=== PATIENT | male | born 1990 | race American Indian/Alaskan Native ===

== ENCOUNTER 2018-10-31 23:37 | Inpatient (IN) | payer OTHER ==
[2018-11-01] MEDS ORDERED: NACL 0.9% 1000 ML 1,000 ML IV ONE (02:03)
[2018-11-01] MEDS ORDERED: ZOFRAN IV ONE (02:03)
[2018-11-01] MEDS ORDERED: MORPHINE IV ONE ×2 (02:32→04:30)
[2018-11-01] MEDS ORDERED: MORPHINE ONE ×2 (02:35→08:04)
[2018-11-01 02:47] LABS: Alanine Aminotransferase 7 units/L (7-56); Albumin 3.5 g/dL (3.9-5); BUN/Creatinine Ratio 12; Blood Urea Nitrogen 12 mg/dL (9-20); Hemolysis Index 4
--- NOTE | 2018-11-01 03:10 | Emergency Department Report ---
ED Abdominal Pain HPI - General Chief Complaint: Rectal Pain Stated Complaint: BUTTOCKS PRESSURE/PAIN Time Seen by Provider: 11/01/18 02:02 Source: patient Mode of arrival: Ambulatory Limitations: No Limitations - History of Present Illness Initial Comments: There is a 28 -year-old -[place] male with no medical history, practices anal sex , patient presents for abdominal pain 7/10 aching sharp with rectal pressure his last bowel movement was 6 days ago, last by mouth intake today patient denies fever chills no nausea /vomiting. MD Complaint: abdominal pain Onset/Timin -: days(s) Radiation: none Migration to: no migration, periumbilical, epigastric, suprapubic Severity: moderate Severity scale (0 -10): 8 Quality: cramping, aching Consistency: constant Improves With: nothing Worsens With: eating, vomiting, movement Context: foreign travel Associated Symptoms: denies: nausea, vomiting, diarrhea, fever, constipation - Related Data Allergies Allergy/AdvReac Type Severity Reaction Status Date / Time No Known Allergies Allergy Unverified 10/31/18 23:44 ED Review of Systems ROS: Stated complaint: BUTTOCKS PRESSURE/PAIN Other details as noted in HPI ED Past Medical Hx - Past Medical History Previous Medical History?: No - Surgical History Past Surgical History?: No - Social History Smoking Status: Never Smoker Substance Use Type: None ED Physical Exam - General Limitations: No Limitations General appearance: alert, in no apparent distress - Head Head exam: Present: atraumatic, normocephalic - Eye Eye exam: Present: normal appearance - ENT ENT exam: Present: mucous membranes moist - Neck Neck exam: Present: normal inspection - Respiratory Respiratory exam: Present: normal lung sounds bilaterally, chest wall tenderness. Absent: respiratory distress, wheezes, stridor - Cardiovascular Cardiovascular Exam: Present: regular rate, normal rhythm, normal heart sounds. Absent: systolic murmur, diastolic murmur, rubs, gallop - GI/Abdominal GI/Abdominal exam: Present: soft, tenderness (bilat lower quad), normal bowel sounds. Absent: guarding, rebound, rigid, bruit, hernia - Rectal Rectal exam: Present: normal rectal tone, tenderness. Absent: black stool, bloody stool, fecal impaction - exam: Present: normal inspection - Extremities Exam Extremities exam: Present: normal inspection, full ROM - Back Exam Back exam: Present: normal inspection, full ROM. Absent: tenderness, CVA tenderness (R), CVA tenderness (L), muscle spasm, rash noted - Neurological Exam Neurological exam: Present: alert, oriented X3, CN II-XII intact, normal gait, reflexes normal - Psychiatric Psychiatric exam: Present: normal affect, normal mood - Skin Skin exam: Present: warm, dry, intact, normal color. Absent: rash ED Course Vital Signs 10/31/18 11/01/18 11/01/18 23:45 02:42 03:12 Temperature 99.5 F Pulse Rate 101 H Respiratory 18 20 18 Rate Blood Pressure 124/67 O2 Sat by Pulse 98 Oximetry 11/01/18 11/01/18 04:51 04:54 Temperature Pulse Rate Respiratory 18 18 Rate Blood Pressure O2 Sat by Pulse 99 Oximetry ED Medical Decision Making - Lab Data Result diagrams: 11/01/18 02:14 11/01/18 02:14 Labs 11/01/18 11/01/18 11/01/18 02:14 02:14 02:14 WBC 8.3 RBC 4.49 Hgb 13.3 Hct 38.1 MCV 85 MCH 30 MCHC 35 H RDW 12.8 L Plt Count 279 Lymph % (Auto) 18.0 [place] % (Auto) 7.1 Eos % (Auto) 1.8 Baso % (Auto) 0.6 Lymph # 1.5 [place] # 0.6 Eos # 0.1 Baso # 0.1 Seg Neutrophils % 72.5 H Seg Neutrophils # 6.0 Sodium 137 Potassium 4.0 Chloride 100.3 Carbon Dioxide 24 Anion Gap 17 BUN 12 Creatinine 1.0 Estimated GFR > 60 BUN/Creatinine Ratio 12 Glucose 105 H Lactic Acid 0.90 Calcium 9.0 Total Bilirubin 0.20 AST 9 ALT 7 Alkaline Phosphatase 66 Total Protein 6.9 Albumin 3.5 L Albumin/Globulin Ratio 1.0 Lipase 19 - Radiology Data Radiology results: report reviewed, image reviewed Ordering Physician: VIRGINIA CHIRINOS NP Date of Service: 11/01/18 Procedure(s): CT abdomen pelvis w con Accession Number(s): [id number] cc: VIRGINIA CHIRINOS NP PROCEDURE: CT ABDOMEN PELVIS W CON TECHNIQUE: Computerized axial tomography of the abdomen and pelvis was performed in arterial and delayed phases "after the IV injection of iodinated nonionic contrast. HISTORY: abd pain COMPARISONS: None . FINDINGS: Partially visualized intrathoracic contents are unremarkable. The liver, gallbladder, pancreas, spleen, and adrenal glands are unremarkable. Kidneys show no worrisome lesions, hydronephrosis, or calculi. Urinary bladder is unremarkable. Small and large bowel are normal in caliber. Appendix is normal. No pneumoperitoneum or ascites. A focal peripherally enhancing fluid collection is present at the left lateral aspect of the rectum on axial series 2, image 170 measuring approximately 3.9 x 2.4 x 2.7 cm. Scattered prominent lymph nodes present in the perirectal fat. Aorta is normal in course and caliber. Superficial soft tissues are unremarkable. No acute or aggressive appearing skeletal findings. IMPRESSION: Perirectal abscess measures approximately 3.9 x 2.4 x 2.7 cm. Notification initiated via Tom technical sales support manager immediately following the exam on 11/01/2018. This document is electronically signed by George Cagle MD., Nov 01 2018 04:17:42 AM ET Transcribed By: MB Dictated By: GEORGE CAGLE MD Electronically Authenticated By: GEORGE CAGLE MD Signed Date/Time: 11/01/18 0419 DD/ 2 TD/TT: 11/01/18202 - Medical Decision Making No CT consult confirms perirectal abscess 4x3 cm, consult to general surgery doctor, recommendation admitted to medicine with general surgery see in am, IV antibiotics Levaquin and Flagyl pain control IV fluids , Consider consulting ID, pt states HIV neg, , Consulted hospitalist will admit to medicine, General Trish valeriy consult requested, discussed treatment plan with patient, patient verbalized agreement and understanding treatment plan. Critical care attestation.: If time is entered above; I have spent that time in minutes in the direct care of this critically ill patient, excluding procedure time. ED Disposition Clinical Impression: Perirectal abscess Disposition: OP ADMIT IP TO THIS HOSP Is pt being admited?: Yes Does the pt Need Aspirin: No Condition: Stable Time of Disposition: 05:11
[2018-11-01 03:44] LABS: Basophils # (Auto) 0.1 K/mm3 (0.0-0.1); Basophils % (Auto) 0.6 % (0.0-1.8); Eosinophils # (Auto) 0.1 K/mm3 (0.0-0.4); Eosinophils % (Auto) 1.8 % (0.0-4.3); Hematocrit 38.1 % (35.5-45.6); Hemoglobin 13.3 gm/dl (11.8-15.2); Lymphocytes # (Auto) 1.5 K/mm3 (1.2-5.4); Mean Corpuscular HGB Conc 35 % (32-34); Mean Corpuscular Volume 85 fl (84-94); Monocytes # (Auto) 0.6 K/mm3 (0.0-0.8); Monocytes % (Auto) 7.1 % (0.0-7.3); Platelet Count 279 K/mm3 (140-440); Red Blood Count 4.49 M/mm3 (3.65-5.03); Red Cell Distribution Width 12.8 % (13.2-15.2)
--- NOTE | 2018-11-01 04:19 | Cat Scan Report ---
PROCEDURE: CT ABDOMEN PELVIS W CON TECHNIQUE: Computerized axial tomography of the abdomen and pelvis was performed in arterial and del ayed phases "after the IV injection of iodinated nonionic contrast. HISTORY: abd pain COMPARISONS: None . FINDINGS: Partially visualized intrathoracic contents are unremarkable. The liver, gallbladder, pancreas, spleen, and adrenal glands are unremarkable. Kidneys show no worrisome lesions, hydronephrosis, or calculi. Urinary bladder is unremarkable. Small and large bowel are normal in caliber. Appendix is normal. No pneumoperitoneum or ascites. A fo teri peripherally enhancing fluid collection is present at the left lateral aspect of the rectum on ax ial series 2, image 170 measuring approximately 3.9 x 2.4 x 2.7 cm. Scattered prominent lymph nodes p resent in the perirectal fat. Aorta is normal in course and caliber. Superficial soft tissues are unremarkable. No acute or aggressive appearing skeletal findings. IMPRESSION: Perirectal abscess measures approximately 3.9 x 2.4 x 2.7 cm. Notification initiated via Tom manager decision support immediately following the exam on 11/01/2018. This document is electronically signed by George Mack MD., Nov 01 2018 04:17:42 AM ET
[2018-11-01] MEDS ORDERED: CLEOCIN 900 MG/50 mL 900 MG/50 ML BAG IV ONE (04:30)
[2018-11-01] MEDS ORDERED: LEVAQUIN 750MG/150ML 750 MG/150 ML BAG IV ONE (04:35)
[2018-11-01] MEDS ORDERED: FLAGYL 500 MG/100 ML 500 MG/100 ML BAG IV ONE ×2 (04:35→07:08)
[2018-11-01] MEDS ORDERED: ZOFRAN IV PRN (05:13)
[2018-11-01] MEDS ORDERED: MORPHINE IV PRN (05:13)
[2018-11-01] MEDS ORDERED: SODIUM CHLORIDE FLUSH SYRINGE 10 ML IV PRN (05:13)
[2018-11-01] MEDS: NACL 0.9% 1000 ML 1,000 ML IV SCH ×2 (05:23→22:53)
--- NOTE | 2018-11-01 05:23 | History and Physical Report ---
History of Present Illness Date of examination: 11/01/18 History of present illness: 28-year-old male with no medical problem comes emergency room complaining of rectal pain 4 days ago. Pain is sharp, intermittent every 5 minutes, intensity 7/10, no radiation, relieved with pain medication in the ER. Practices anal s ex, admits to fever chills Review of systems Constitutional: no weight loss, chills, fever Ears, eyes, nose, mouth and throat: no nasal congestion, no nasal discharge, no sinus pressure, no vision change, no red eye. Neck: No neck pain or rigidity. Cardiovascular: no palpitations, chest pain Respiratory: no cough, shortness of breath Gastrointestinal: no hematochezia, abdominal pain Genitourinary : no frequency , no hematuria Musculoskeletal: no joint swelling or muscle ache Integumentary: no rash, no pruritis Neurological: no parathesias, no focal weakness Endocrine: no cold or heat intolerance, no polyuria or polydipsia Hematologic/Lymphatic: no easy bruising, no easy bleeding, no gland swelling Allergic/Immunologic: no urticaria, no angioedema. PAST MEDICAL HISTORY:None PAST SURGICAL HISTORY: None SOCIAL HISTORY: Denies alcohol, drugs, tobacco FAMILY HISTORY: Hypertension Medications and Allergies Allergies Allergy/AdvReac Type Severity Reaction Status Date / Time No Known Allergies Allergy Unverified 10/31/18 23:44 Active Meds: Active Medications Acetaminophen (Tylenol) 650 mg PO Q4H PRN PRN Reason: Pain MILD(1-3)/Fever >100.5/LOPEZ Enoxaparin Sodium (Lovenox) 30 mg SUB-Q QDAY RL Levofloxacin/Dextrose (Levaquin 750mg/150ml) 750 mg in 150 mls @ 100 mls/hr IV ONCE ONE Stop: 11/01/18 06:04 Sodium Chloride (Nacl 0.9% 1000 Ml) 1,000 mls @ 150 mls/hr IV DIRECT RL Sodium Chloride (Nacl 0.9% 1000 Ml) 1,000 mls @ 125 mls/hr IV DIRECT RL Metronidazole (Flagyl 500 Mg/100 Ml) 500 mg in 100 mls @ 100 mls/hr IV Q8HR RL; Protocol Levofloxacin/Dextrose (Levaquin 750mg/150ml) 750 mg in 150 mls @ 100 mls/hr IV Q24HR RL; Protocol Morphine Sulfate (Morphine) 2 mg IV Q4H PRN PRN Reason: Pain, Moderate (4-6) Ondansetron HCl (Zofran) 4 mg IV Q8H PRN PRN Reason: Nausea And Vomiting Sodium Chloride (Sodium Chloride Flush Syringe 10 Ml) 10 ml IV BID RL Sodium Chloride (Sodium Chloride Flush Syringe 10 Ml) 10 ml IV PRN PRN PRN Reason: LINE FLUSH Exam - Physical Exam Narrative exam: General Apperance: The patient lying in bed, breathing comfortable HEENT: Normocephalic, atraumatic. Pupils equally round and reactive to light, EOMI, no sclericterus or JVD or thyromegaly or nodule. , no carotid bruit, mucous membranes moist, no exudate or erythema Heart: S1-S2, regular is rhythm Lungs: Clear to auscultation bilaterally, breathing comfortable Abdomen: Positive bowel sounds, soft, nontender, nondistended, no organomegaly Extremities: No edema cyanosis clubbing Skin: no rash, nodule, warm and dry Rectal: no erythema, induration, +tender Neuro: cranial nerves 2-12 intact, speech is fluent, motor/sensory intact - Constitutional Vitals: Temp Pulse Resp BP Pulse Ox 99.5 F 101 H 18 124/67 99 10/31/18 23:45 10/31/18 23:45 11/01/18 04:54 10/31/18 23:45 11/01/18 04:54 Results - Labs CBC & Chem 7: 11/01/18 02:14 11/01/18 02:14 Labs: Abnormal lab results 11/01/18 11/01/18 Range/Units 02:14 02:14 MCHC 35 H (32-34) % RDW 12.8 L (13.2-15.2) % Seg Neutrophils % 72.5 H (40.0-70.0) % Glucose 105 H (75-100) mg/dL Albumin 3.5 L (3.9-5) g/dL - Imaging and Cardiology CT scan - abdomen: report reviewed CT scan - pelvis: report reviewed Assessment and Plan Assessment Rectal abscess Plan Admit to medicine Start IV fluid, IV Flagyl and Levaquin per surgery Surgery was consulted to see the patient IV morphine, DVT prophylaxis
[2018-11-01] MEDS ORDERED: NACL 0.9% 1000 ML 1,000 ML IV SCH (06:00)
[2018-11-01] MEDS: DILAUDID IV PRN ×4 (11:01→23:22)
[2018-11-01] MEDS: LOVENOX SUB-Q SCH (11:02)
[2018-11-01] MEDS: SODIUM CHLORIDE FLUSH SYRINGE 10 ML IV SCH ×2 (11:02→22:34)
--- NOTE | 2018-11-01 11:17 | Consultation ---
History of Present Illness Consult date: 11/01/18 Reason for consult: abdominal pain Chief complaint: rectal pain - History of present illness History of present illness: 28 yo M with no PMHx presents with c/o 1 week of rectal pain. The pain began suddenly, is sharp, and has gradually gotten worse. He is unable to have a BM for 1 week and states he feels like gas is trapped. He denies n/v and last meal was yesterday. He admits to f/c. He has never had pain like this before. He has a hx of anal intercourse. CT scan showed perirectal abscess. Per ER practitioner, nothing could be felt on rectal exam. Past History Past Medical History: No medical history Past Surgical History: Other (R knee surgery) Social history: no significant social history Family history: no significant family history Medications and Allergies Allergies Allergy/AdvReac Type Severity Reaction Status Date / Time No Known Allergies Allergy Verified 11/01/18 07:25 Home Medications Medication Instructions Recorded Confirmed Last Taken Type No Known Home Medications [No 11/01/18 11/01/18 Unknown History Reported Home Medications] Active Meds: Active Medications Acetaminophen (Tylenol) 650 mg PO Q4H PRN PRN Reason: Pain MILD(1-3)/Fever >100.5/LOPEZ Enoxaparin Sodium (Lovenox) 40 mg SUB-Q QDAY RL Last Admin: 11/01/18 11:02 Dose: Not Given Documented by: Hydromorphone HCl (Dilaudid) 1 mg IV Q3H PRN PRN Reason: Pain , Severe (7-10) Last Admin: 11/01/18 11:01 Dose: 1 mg Documented by: Sodium Chloride (Nacl 0.9% 1000 Ml) 1,000 mls @ 150 mls/hr IV DIRECT RL Last Admin: 11/01/18 05:23 Dose: 150 mls/hr Documented by: Sodium Chloride (Nacl 0.9% 1000 Ml) 1,000 mls @ 125 mls/hr IV DIRECT RL Metronidazole (Flagyl 500 Mg/100 Ml) 500 mg in 100 mls @ 100 mls/hr IV Q8HR RL; Protocol Levofloxacin/Dextrose (Levaquin 750mg/150ml) 750 mg in 150 mls @ 100 mls/hr IV Q24HR RL; Protocol Ondansetron HCl (Zofran) 4 mg IV Q8H PRN PRN Reason: Nausea And Vomiting Sodium Chloride (Sodium Chloride Flush Syringe 10 Ml) 10 ml IV BID RL Last Admin: 11/01/18 11:02 Dose: 10 ml Documented by: Sodium Chloride (Sodium Chloride Flush Syringe 10 Ml) 10 ml IV PRN PRN PRN Reason: LINE FLUSH Review of Systems All systems: negative (10 PT ROS performed and negative except for that listed in HPI) Exam Vital Signs Temp Pulse Resp BP Pulse Ox 99.5 F 101 H 18 124/67 98 10/31/18 23:45 10/31/18 23:45 10/31/18 23:45 10/31/18 23:45 10/31/18 23:45 Narrative exam: Gen; AAOx3. NAD CV: S1, S2+ resp: even and unlabored Abd: soft, NT, ND Ext: no c/c/e Results - Labs 11/01/18 02:14 11/01/18 02:14 Abnormal lab results 11/01/18 11/01/18 Range/Units 02:14 02:14 MCHC 35 H (32-34) % RDW 12.8 L (13.2-15.2) % Seg Neutrophils % 72.5 H (40.0-70.0) % Glucose 105 H (75-100) mg/dL Albumin 3.5 L (3.9-5) g/dL Diabetes panel 11/01/18 Range/Units 02:14 Sodium 137 (137-145) mmol/L Potassium 4.0 (3.6-5.0) mmol/L Chloride 100.3 (98-107) mmol/L Carbon Dioxide 24 (22-30) mmol/L BUN 12 (9-20) mg/dL Creatinine 1.0 (0.8-1.5) mg/dL Glucose 105 H (75-100) mg/dL Calcium 9.0 (8.4-10.2) mg/dL AST 9 (5-40) units/L ALT 7 (7-56) units/L Alkaline Phosphatase 66 (35-129) units/L Total Protein 6.9 (6.3-8.2) g/dL Albumin 3.5 L (3.9-5) g/dL Calcium panel 11/01/18 Range/Units 02:14 Calcium 9.0 (8.4-10.2) mg/dL Albumin 3.5 L (3.9-5) g/dL Pituitary panel 11/01/18 Range/Units 02:14 Sodium 137 (137-145) mmol/L Potassium 4.0 (3.6-5.0) mmol/L Chloride 100.3 (98-107) mmol/L Carbon Dioxide 24 (22-30) mmol/L BUN 12 (9-20) mg/dL Creatinine 1.0 (0.8-1.5) mg/dL Glucose 105 H (75-100) mg/dL Calcium 9.0 (8.4-10.2) mg/dL Adrenal panel 11/01/18 Range/Units 02:14 Sodium 137 (137-145) mmol/L Potassium 4.0 (3.6-5.0) mmol/L Chloride 100.3 (98-107) mmol/L Carbon Dioxide 24 (22-30) mmol/L BUN 12 (9-20) mg/dL Creatinine 1.0 (0.8-1.5) mg/dL Glucose 105 H (75-100) mg/dL Calcium 9.0 (8.4-10.2) mg/dL Total Bilirubin 0.20 (0.1-1.2) mg/dL AST 9 (5-40) units/L ALT 7 (7-56) units/L Alkaline Phosphatase 66 (35-129) units/L Total Protein 6.9 (6.3-8.2) g/dL Albumin 3.5 L (3.9-5) g/dL - Imaging CT scan - abdomen: report reviewed, image reviewed CT scan - pelvis: report reviewed, image reviewed Assessment and Plan 28 yo M with perirectal abscess CT images reviewed with Dr. Quinn Plan: 1. NPO 2. IVF 3. IV abs 4. prn pain control 5. bowel regimen 6. OR today for rectal exam under anesthesia and drainage of perirectal abscess Thank you, please call with questions.
[2018-11-01] MEDS: TYLENOL PO PRN (12:15)
[2018-11-01] MEDS: FLAGYL 500 MG/100 ML 500 MG/100 ML BAG IV SCH ×3 (14:34→22:33)
--- NOTE | 2018-11-01 18:50 | Event Note ---
Date: 11/01/18 Surgery postponed until tomorrow due to no OR staff availability daniel. Several emergency cases in the OR and GI. Notified patient we will start diet and perform surgery tomorrow. He was understanding. KEN sanchez. Discussed with patient's RN.
[2018-11-02] MEDS: TYLENOL PO PRN ×2 (00:03→09:31)
[2018-11-02] MEDS: DILAUDID IV PRN ×2 (02:52→06:07)
[2018-11-02 05:21] LABS: Basophils % (Auto) 0.1 % (0.0-1.8); Eosinophils # (Auto) 0.1 K/mm3 (0.0-0.4); Eosinophils % (Auto) 0.9 % (0.0-4.3); Hematocrit 35.1 % (35.5-45.6); Lymphocytes # (Auto) 1.7 K/mm3 (1.2-5.4); Lymphocytes % (Auto) 22.4 % (13.4-35.0); Mean Corpuscular HGB Conc 34 % (32-34); Mean Corpuscular Volume 85 fl (84-94); Monocytes # (Auto) 0.7 K/mm3 (0.0-0.8); Monocytes % (Auto) 8.9 % (0.0-7.3); Platelet Count 258 K/mm3 (140-440); Red Blood Count 4.13 M/mm3 (3.65-5.03)
[2018-11-02 05:40] LABS: BUN/Creatinine Ratio 8; Blood Urea Nitrogen 7 mg/dL (9-20); Calcium 7.8 mg/dL (8.4-10.2); Hemolysis Index 4
[2018-11-02] MEDS: FLAGYL 500 MG/100 ML 500 MG/100 ML BAG IV SCH ×3 (06:06→22:48)
--- NOTE | 2018-11-02 07:26 | Event Note ---
Date: 11/01/18 For Perirectal abscess I/D today
[2018-11-02] MEDS ORDERED: XYLOCAINE 1% 20 mL ONE (08:46)
[2018-11-02] MEDS ORDERED: VERSED IV NR (09:21)
[2018-11-02] MEDS ORDERED: SUBLIMAZE IV NR (09:27)
[2018-11-02] MEDS: LACTATED RINGERS 1,000 ML IV SCH (09:45)
[2018-11-02] MEDS ORDERED: XYLOCAINE MPF 2% ONE (09:55)
[2018-11-02] MEDS ORDERED: MARCAINE 0.5% INFILTRATI ONE ×2 (09:55→10:31)
[2018-11-02] MEDS ORDERED: DIPRIVAN 10 MG/ML IV ONE (09:55)
[2018-11-02] MEDS ORDERED: SUBLIMAZE ONE (09:55)
[2018-11-02] MEDS ORDERED: DECADRON ONE (09:55)
[2018-11-02] MEDS ORDERED: ZEMURON IV ONE (09:55)
[2018-11-02] MEDS ORDERED: ZOFRAN ONE (09:55)
[2018-11-02] MEDS: SODIUM CHLORIDE FLUSH SYRINGE 10 ML IV SCH (10:00)
[2018-11-02] MEDS: LEVAQUIN 750MG/150ML 750 MG/150 ML BAG IV SCH (10:10)
[2018-11-02] MEDS ORDERED: NACL 0.9% IR ONE (10:31)
[2018-11-02] MEDS ORDERED: XYLOCAINE 2% UROJET UR ONE (11:20)
[2018-11-02] MEDS ORDERED: XYLOCAINE 2% UROJET ONE (11:21)
[2018-11-02] MEDS ORDERED: NORCO 5/325 PO PRN (11:27)
--- NOTE | 2018-11-02 11:29 | Post Operative Note ---
Date of procedure: 11/02/18 Pre-op diagnosis: rectal abscess Post-op diagnosis: same Findings: large amount of purulent fluid in abscess cavity Procedure: incision and drainage of rectal abscess Anesthesia: DAVIDA, local Surgeon: OLESYA RUIZ Estimated blood loss: minimal Pathology: list (wound cultures) Specimen disposition: to lab Condition: stable Disposition: PACU
[2018-11-02] MEDS: LOVENOX SUB-Q SCH (13:54)
--- NOTE | 2018-11-02 14:23 | Operative Report ---
PREOPERATIVE DIAGNOSIS: Rectal abscess. POSTOPERATIVE DIAGNOSIS: Rectal abscess. FINDINGS: Large amount of purulent fluid and abscess cavity. PROCEDURE: Incision and drainage of rectal abscess. ANESTHESIA: General endotracheal anesthesia, local. SURGEON: Analia Anderson DO ESTIMATED BLOOD LOSS: Minimal. PATHOLOGY: Wound cultures. SPECIMEN DISPOSITION: To lab. CONDITION AND DISPOSITION: The patient is stable to PACU. HISTORY OF PRESENT ILLNESS AND INDICATION: The patient is a 28-year-old male who presented to the Emergency Room with complaints of rectal pain and constipation. He was found to have a rectal abscess on CAT scan. He was therefore admitted for IV antibiotics and surgery was recommended. I discussed all risks, benefits and alternatives of the surgery with the patient and questions answered. Consent was obtained. PROCEDURE IN DETAIL: The patient was identified in the preoperative area. The patient was taken to the operating room and anesthesia was induced on the stretcher. After the patient was intubated and the tube secured, the patient was transferred to the operating room table in a prone position. All bony prominences were appropriately padded. He was then placed in jackknife position and his buttocks taped apart. The rectal area was prepped with Betadine in the usual sterile fashion. The area was then draped in the usual sterile fashion. A timeout was performed. A digital rectal exam was performed and on the left hand side, there was a fluctuant and indurated mass in the rectum approximately 6-7 cm from the anal verge. A retractor was placed into the rectum in order to better visualize this area. An 18-gauge syringe was inserted into the fluctuant area. There was immediate return of purulent fluid and cultures were obtained. A alessandro incision was made at this location and there was copious drainage of purulent fluid mixed with some blood. Using a hemostat, the abscess cavity was gently probed and all of the purulent material was expressed. The abscess cavity and rectum were irrigated until the irrigant returned clear. A 10-Japanese Malecot catheter was inserted into the abscess cavity and brought out through the rectum and sutured to the gluteal area using a 3-0 nylon drain stitch. The rectum was once again checked for hemostasis, which was carefully ensured and a Surgifoam gauze coated with lidocaine jelly was placed into the rectum. A 4 x 4 gauze was placed over the drain and the rectal area and covered with tape. At the end of the case, all sponge and instrument count, and sharp counts were correct x 2. The patient was transferred back to the stretcher in supine position and extubated. He was taken to PACU in stable condition. JOB# [id number] DILCIA/SOLEDAD ELDRIDGE
[2018-11-02] MEDS: MIRALAX 3350 PO SCH (14:44)
[2018-11-02] MEDS: COLACE PO SCH ×2 (14:44→22:48)
--- NOTE | 2018-11-02 14:58 | Progress Note ---
Assessment and Plan Assessment and plan: Rectal abscess s/p I and D done by Surgeon Cont iv Antibiotics Full code status History Interval history: Pain rectal area Fever Hospitalist Physical - Physical exam Narrative exam: Gen: Not in acute distress, lying in bed, HEENT: Normocephalic, atraumatic Neck: supple, no JVD Heart: S1 and S2 reg, no murmurs, rubs or gallop Lungs: Clear, no crackles, no wheeze Abd: soft, non tender, non distended, normal BS Ext:No edema, no clubbing, no cyanosis Neuro: Awake,alert, oriented x 3, moves all ext, non focal Psych:Normal mood - Constitutional Vitals: Temp Pulse Resp BP Pulse Ox 98.1 F 88 18 117/73 99 11/02/18 12:20 11/02/18 12:20 11/02/18 12:20 11/02/18 12:20 11/02/18 12:20 Results - Labs CBC & Chem 7: 11/02/18 05:06 11/02/18 05:06 Labs: Laboratory Last Values WBC 7.5 K/mm3 (4.5-11.0) 11/02/18 05:06 RBC 4.13 M/mm3 (3.65-5.03) 11/02/18 05:06 Hgb 12.0 gm/dl (11.8-15.2) 11/02/18 05:06 Hct 35.1 % (35.5-45.6) L 11/02/18 05:06 MCV 85 fl (84-94) 11/02/18 05:06 MCH 29 pg (28-32) 11/02/18 05:06 MCHC 34 % (32-34) 11/02/18 05:06 RDW 13.0 % (13.2-15.2) L 11/02/18 05:06 Plt Count 258 K/mm3 (140-440) 11/02/18 05:06 Lymph % (Auto) 22.4 % (13.4-35.0) 11/02/18 05:06 [place] % (Auto) 8.9 % (0.0-7.3) H 11/02/18 05:06 Eos % (Auto) 0.9 % (0.0-4.3) 11/02/18 05:06 Baso % (Auto) 0.1 % (0.0-1.8) 11/02/18 05:06 Lymph # 1.7 K/mm3 (1.2-5.4) 11/02/18 05:06 [place] # 0.7 K/mm3 (0.0-0.8) 11/02/18 05:06 Eos # 0.1 K/mm3 (0.0-0.4) 11/02/18 05:06 Baso # 0.0 K/mm3 (0.0-0.1) 11/02/18 05:06 Seg Neutrophils % 67.7 % (40.0-70.0) 11/02/18 05:06 Seg Neutrophils # 5.0 K/mm3 (1.8-7.7) 11/02/18 05:06 Sodium 137 mmol/L (137-145) 11/02/18 05:06 Potassium 3.6 mmol/L (3.6-5.0) 11/02/18 05:06 Chloride 102.0 mmol/L (98-107) 11/02/18 05:06 Carbon Dioxide 25 mmol/L (22-30) 11/02/18 05:06 14 mmol/L 11/02/18 05:06 BUN 7 mg/dL (9-20) L 11/02/18 05:06 0.9 mg/dL (0.8-1.5) 11/02/18 05:06 Estimated GFR > 60 ml/min 11/02/18 05:06 8 % 11/02/18 05:06 Glucose 89 mg/dL (75-100) 11/02/18 05:06 Lactic Acid 0.90 mmol/L (0.7-2.0) 11/01/18 02:14 Calcium 7.8 mg/dL (8.4-10.2) L 11/02/18 05:06 0.20 mg/dL (0.1-1.2) 11/01/18 02:14 AST 9 units/L (5-40) 11/01/18 02:14 ALT 7 units/L (7-56) 11/01/18 02:14 66 units/L (35-129) 11/01/18 02:14 6.9 g/dL (6.3-8.2) 11/01/18 02:14 3.5 g/dL (3.9-5) L 11/01/18 02:14 1.0 % 11/01/18 02:14 19 units/L (13-60) 11/01/18 02:14 Active Medications - Current Medications Current Medications: Generic Name Dose Route Start Last Admin Trade Name Freq PRN Reason Stop Dose Admin Acetaminophen 650 mg 11/01/18 05:13 11/02/18 09:31 Tylenol PO 650 mg Q4H PRN Administration Pain MILD(1-3)/Fever >100.5/LOPEZ Acetaminophen/Hydrocodone Bitart 1 each 11/02/18 11:27 [place] 5/325 PO Q6H PRN Pain, Moderate (4-6) Docusate Sodium 100 mg 11/02/18 12:00 11/02/18 14:44 Colace PO 100 mg BID RL Administration Enoxaparin Sodium 40 mg 11/01/18 10:00 11/02/18 13:54 Lovenox SUB-Q Not Given QDAY RL Metronidazole 500 mg in 100 mls @ 100 mls/hr 11/01/18 13:00 11/02/18 14:51 Flagyl 500 Mg/100 Ml IV 100 mls/hr Q8HR RL Administration Protocol Levofloxacin/Dextrose 750 mg in 150 mls @ 100 mls/hr 11/02/18 10:00 11/02/18 10:10 Levaquin 750mg/150ml IV 100 mls/hr Q24HR RL Administration Protocol Lactated Ringer's 1,000 mls @ 100 mls/hr 11/02/18 09:21 11/02/18 09:45 Lactated Ringers IV 100 mls/hr DIRECT RL Administration Ondansetron HCl 4 mg 11/01/18 05:13 11/01/18 23:25 Zofran IV 4 mg Q8H PRN Administration Nausea And Vomiting Polyethylene Glycol 17 gm 11/02/18 14:00 11/02/18 14:44 Miralax 3350 PO 17 gm QDAY RL Administration Sodium Chloride 10 ml 11/01/18 10:00 11/02/18 10:00 Sodium Chloride Flush Syringe 10 Ml IV Not Given BID RL Sodium Chloride 10 ml 11/01/18 05:13 Sodium Chloride Flush Syringe 10 Ml IV PRN PRN LINE FLUSH
[2018-11-03] MEDS: SODIUM CHLORIDE FLUSH SYRINGE 10 ML IV SCH ×2 (05:18→10:47)
[2018-11-03] MEDS: FLAGYL 500 MG/100 ML 500 MG/100 ML BAG IV SCH (06:20)
[2018-11-03] MEDS: LACTATED RINGERS 1,000 ML IV SCH (06:22)
[2018-11-03] MEDS: LEVAQUIN 750MG/150ML 750 MG/150 ML BAG IV SCH (10:44)
[2018-11-03] MEDS: LOVENOX SUB-Q SCH (10:45)
[2018-11-03] MEDS: COLACE PO SCH (10:45)
[2018-11-03] MEDS: MIRALAX 3350 PO SCH (10:46)
[2018-11-03 10:58] VITALS: BP 104/70
--- NOTE | 2018-11-03 11:12 | Progress Note ---
Assessment and Plan 28 yo M s/p incision and drainage of rectal abscess, POD 1 Plan; 1. reg diet 2. prn PO pain control - OTC 3. drain dced 4. transition to oral abx - Levquin and Flagyl x total of 10-14 days 5. may dc home from surgery standpoint D/W Dr. Naranjo. Thank you, please call with questions. Subjective Date of service: 11/03/18 Narrative: Pt seen and examined. He feels much better. No f/c. He had a BM yesterday. No bleeding. Rectal packing and drain came out of rectum during BM. NO pain Objective Vital Signs - 12hr 11/02/18 11/03/18 11/03/18 23:34 00:04 04:23 Temperature 98.3 F 97.8 F Pulse Rate 77 87 75 Respiratory 16 17 Rate Blood Pressure 93/50 Blood Pressure 121/66 [Left] O2 Sat by Pulse 98 97 98 Oximetry 11/03/18 11/03/18 08:00 08:17 Temperature 97.7 F Pulse Rate 77 75 Respiratory 18 Rate Blood Pressure Blood Pressure 104/70 [Left] O2 Sat by Pulse 99 Oximetry - General physical appearance Narrative Exam: Gen: AAOx3. NAD CV: s1, S2+ resp: even and unlabored Ext: no c/c/e Rectal: external exam - no gross blood or drainage. Skin suture and drain removed - Labs 11/02/18 05:06 11/02/18 05:06
--- NOTE | 2018-11-03 13:53 | Discharge Summary ---
Providers - Providers Date of Admission: 11/01/18 06:52 Date of discharge: 11/03/18 Attending physician: LIZETH CLAYTON 11/01/18 04:56 Consult to Physician [CONS] Stat Comment: done Consulting Provider: OLESYA RUIZ Physician Instructions: Reason For Exam: perirectal abscess Primary care physician: [employer] Hospitalization Condition: Fair Hospital course: Patient is 28-year-old male with HIV presented to emergency room complaining of rectal pain for 4 days. Pain is sharp, intermittent every 5 minutes, intensity 7/10, no radiation, relieved with pain medication in the ER. He has sex with men, practices anal sex, admitted to fever chills. CT abdomen and pelvis revealed perirectal abscess. He was then IV antibiotics and admitted. Patient evaluated by surgeon and incision and drainage done 11/02/2018. Post-procedure he felt better and discharged home next day to follow as an outpatient. Also of note, on initial evaluation in the emergency department he did not reveal that he is HIV positive however when I ask him directly he stated he was HIV positive and is on HAART. Total time spent on discharge, 32 mins R Disposition: DC-01 TO HOME OR SELFCARE - Discharge Diagnoses (1) HIV positive Status: Acute (2) Perirectal abscess Status: Acute Core Measure Documentation - Palliative Care Palliative Care/ Comfort Measures: Not Applicable - Core Measures Any of the following diagnoses?: none Exam - Constitutional Vitals: Temp Pulse Resp BP Pulse Ox 97.7 F 75 18 104/70 99 11/03/18 08:00 11/03/18 08:17 11/03/18 08:00 11/03/18 08:00 11/03/18 08:17 Plan Activity: advance as tolerated Diet: regular Additional Instructions: 1.Follow up with PCP or [facility] in 1 week. 2.Follow up with Dr. Ruiz, surgeon in 1 week Follow up with: PRIMARY CAREMD [Primary Care Provider] - 7 Days Prescriptions: Docusate Sodium [Colace CAP] 100 mg PO BID #14 capsule metroNIDAZOLE [Flagyl TAB] 500 mg PO Q8H #30 tablet levoFLOXacin [Levaquin TAB] 500 mg PO Q24HR #10 tablet HYDROcodone/APAP 5-325 [[place] 5-325 mg TAB] 1 each PO Q6H PRN #15 tablet PRN Reason: Pain, Moderate (4-6)
[2018-11-03] MEDS ORDERED: LEVAQUIN PO SCH (14:00)
[2018-11-03] MEDS ORDERED: FLAGYL PO SCH (14:00)
== END 2018-11-03 16:30 | disposition home or self-care (01) | DRG 346 ==
LOC: ED 23:37 → 3B-SURG 11-01 06:52
PROVIDERS: ADMIT Internal Medicine; ATTEND Internal Medicine
PROC: 0D9P3ZZ Drainage of Rectum, Percutaneous Approach (ICD-10-PCS; principal; 2018-11-02)
PROC: 0D9P0ZZ Drainage of Rectum, Open Approach (ICD-10-PCS; 2018-11-02)
DX: K61.1 Rectal abscess (principal); Z82.49 Family history of ischemic heart disease and other diseases of the circulatory system
CPT/HCPCS: 36415; 74177; 80048; 80053; 82140; 83690; 85025; 87040; 87075; 87076; 87116; 87186; 96361; 96365; 96375; 96376; G0378; J1100; J1170; J1650; J1956; J2250; J2270; J2405; J2704; J3010; J7030; J7120; Q9967

== ENCOUNTER 2019-11-12 23:02 | Inpatient (IN) | payer OTHER ==
[2019-11-13] MEDS ORDERED: HYDROmorphone 1 MG/1 ML INJ IV ONE (00:35)
[2019-11-13] MEDS ORDERED: SODIUM CHLORIDE 0.9% 1000 ML 1,000 ML IV ONE ×2 (00:36→00:51)
--- NOTE | 2019-11-13 00:37 | Emergency Department Report ---
ED General Adult HPI - General Chief complaint: Rectal Pain Stated complaint: RECTAL PAIN PUI?: No Time Seen by Provider: 11/13/19 00:26 Source: patient, RN notes reviewed, old records reviewed Mode of arrival: Ambulatory Limitations: No Limitations - History of Present Illness Initial comments: Patient is a 29-year-old gentleman. He is not known to myself. He has a history of HIV and is on antiviral therapy. He also has a history of perirectal abscess, diagnosed at this hospital in 2019. He presents to the ER with 3 to 4 days of sharp burning deep boring pelvic pain, intermittent dysuria, but no headache, neck pain, chest pain, abdominal pain, shortness of breath. No testicular pain. He reports difficulty with defecating. He is not sure if his symptoms are similar or different to prior perirectal abscess. He reports one new sexual partner, and the patient himself does endorse receptive anal intercourse, with condoms. He denies rectal discharge. His symptoms are sharp, throbbing and aching, do not radiate anywhere, and are markedly improved with hydromorphone in the emergency room. Apparently, at other medical institutions, he was presumptively diagnosed with hemorrhoids. -: Gradual, days(s) Quality: aching, sharp Consistency: constant Improves with: medication Worsens with: movement - Related Data Home Medications Medication Instructions Recorded Confirmed Last Taken Truvada 133 mg-200 mg Tablet 133 mg PO DAILY 11/03/18 11/03/18 11/03/18 11:40 Previous Rx's Medication Instructions Recorded Last Taken Type Docusate Sodium [Colace CAP] 100 mg PO BID #14 capsule 11/03/18 Unknown Rx HYDROcodone/APAP 5-325 [[place] 1 each PO Q6H PRN #15 tablet 11/03/18 Unknown Rx 5-325 mg TAB] levoFLOXacin [Levaquin TAB] 500 mg PO Q24HR #10 tablet 11/03/18 Unknown Rx metroNIDAZOLE [Flagyl TAB] 500 mg PO Q8H #30 tablet 11/03/18 Unknown Rx Allergies Allergy/AdvReac Type Severity Reaction Status Date / Time No Known Allergies Allergy Verified 11/01/18 07:25 ED Review of Systems ROS: Stated complaint: RECTAL PAIN Other details as noted in HPI Constitutional: denies: fever Eyes: denies: vision change ENT: denies: epistaxis Respiratory: denies: cough Cardiovascular: denies: chest pain Gastrointestinal: constipation. denies: abdominal pain, nausea, vomiting, diarrhea, hematemesis, melena, hematochezia Genitourinary: dysuria. denies: urgency, testicular pain Musculoskeletal: denies: back pain Skin: denies: lesions Neurological: denies: weakness Psychiatric: as per HPI Hematological/Lymphatic: denies: easy bleeding ED Past Medical Hx - Past Medical History Previous Medical History?: Yes Hx Congestive Heart Failure: No Hx Diabetes: No Hx Asthma: No Hx COPD: No Additional medical history: Rectal Polyp - Surgical History Past Surgical History?: Yes Additional Surgical History: Restal Polyp - Social History Smoking Status: Never Smoker Substance Use Type: None - Medications Home Medications: Home Medications Medication Instructions Recorded Confirmed Last Taken Type Docusate Sodium [Colace CAP] 100 mg PO BID #14 capsule 11/03/18 Unknown Rx HYDROcodone/APAP 5-325 [[place] 1 each PO Q6H PRN #15 tablet 11/03/18 Unknown Rx 5-325 mg TAB] Truvada 133 mg-200 mg Tablet 133 mg PO DAILY 11/03/18 11/03/18 11/03/18 11:40 History levoFLOXacin [Levaquin TAB] 500 mg PO Q24HR #10 tablet 11/03/18 Unknown Rx metroNIDAZOLE [Flagyl TAB] 500 mg PO Q8H #30 tablet 11/03/18 Unknown Rx ED Physical Exam - General Limitations: No Limitations General appearance: alert, anxious, in distress - Head Head exam: Present: atraumatic, normocephalic - Eye Eye exam: Present: normal appearance, EOMI. Absent: nystagmus - ENT ENT exam: Present: normal exam, normal orophraynx, mucous membranes moist, normal external ear exam - Neck Neck exam: Present: normal inspection, full ROM. Absent: tenderness, meningismus - Respiratory Respiratory exam: Present: normal lung sounds bilaterally. Absent: respiratory distress - Cardiovascular Cardiovascular Exam: Present: normal rhythm, tachycardia, normal heart sounds. Absent: systolic murmur, diastolic murmur, rubs, gallop - GI/Abdominal GI/Abdominal exam: Present: soft, normal bowel sounds. Absent: distended, tenderness, guarding, rebound, rigid, pulsatile mass - Rectal Rectal exam: Present: normal inspection, normal rectal tone, prostate tenderness, prostate enlargement, other (Chaperoned by nurse Shira Abraham). Absent: heme (-) stool, black stool, bloody stool - exam: Present: normal inspection, other (There is normal testicular lie. T here is normal cremasteric reflex. There is no testicular tenderness. There is no testicular swelling. Chaperoned by nurse Shira Abraham). Absent: testicular tenderness External exam: Present: normal external exam - Extremities Exam Extremities exam: Present: normal inspection, full ROM, other (2+ pulses noted in the bilateral upper and lower extremities. There is no palpable cord. negative Homans sign. Muscular compartments are soft. The pelvis is stable.). Absent: pedal edema, calf tenderness - Back Exam Back exam: Present: normal inspection, full ROM. Absent: tenderness, CVA ten derness (R), CVA tenderness (L), paraspinal tenderness, vertebral tenderness - Neurological Exam Neurological exam: Present: alert, oriented X3, other (No facial droop. Tongue midline. Extraocular movements intact bilaterally. Facial sensation intact to light touch in V1, V2, V3 distribution bilaterally. 5 and a 5 strength in 4 extremities. Sensation intact to light touch in 4 extremities.). Absent: motor sensory deficit - Psychiatric Psychiatric exam: Present: anxious - Skin Skin exam: Present: warm, dry, intact, normal color. Absent: rash ED Course Vital Signs 11/12/19 11/13/19 11/13/19 23:23 00:41 01:00 Temperature 98.3 F Pulse Rate 127 H 111 H 96 H Respiratory 18 20 21 Rate Blood Pressure 114/70 134/76 O2 Sat by Pulse 100 97 Oximetry 11/13/19 02:00 Temperature Pulse Rate 102 H Respiratory 15 Rate Blood Pressure 131/72 O2 Sat by Pulse 97 Oximetry - Reevaluation(s) Reevaluation #1: 11/13/19 00:59 Differential diagnosis, including but not limited to: Cystitis, prostatitis, perirectal abscess, proctitis Assessment and plan: 29-year-old gentleman with history of perirectal abscess, with prostatic tenderness, new onset pain, history of perirectal abscess. We will treat his symptoms, obtain urinalysis, urine culture, laboratory studies, pelvic CT, and reassess. Highly suspect prostatitis Reevaluation #2: 11/13/19 02:16 CT scan shows perirectal abscess. Patient having difficulty urinating. Carrion catheter ordered. Antibiotics ordered. Contacted general surgeon on-call, Dr. Sargent, I discussed patient's history, physical, laboratory studies, and CT scan findings. His group will see the patient in consultation. He requested nothing by mouth after 6 AM. Hospital physician, Dr. Kelley, to admit the patient. Patient updated on findings. He is amenable to hospitalization. ED Medical Decision Making - Lab Data Result diagrams: 11/13/19 00:44 11/13/19 00:44 Vital Signs 11/12/19 23:23 Temperature 98.3 F Pulse Rate 127 H Respiratory 18 Rate Blood Pressure 114/70 O2 Sat by Pulse 100 Oximetry - Radiology Data Radiology results: pending, report reviewed, image reviewed CT pelvis w con INDICATION / CLINICAL INFORMATION: MAIN: Pelvic pain, prostatitis versus perirectal abscess, 100CC [id number]. TECHNIQUE: Routine CT of the pelvis with IV contrast All CT scans at this location are performed using CT dose reduction for ALARA by means of automated exposure control. COMPARISON: 11/01/2018. FINDINGS: There is a large multiloculated perirectal abscess that measures about 5.2 x 3.4 x 2.6 cm. It is significantly enlarged when compared to the prior exam. The urinary bladder is unremarkable. The perirectal abscess is immediately adjacent to the prostate. No additional inflammatory abnormality is appreciated. IMPRESSION: Large multiloculated perirectal abscess immediately adjacent to the left lobe of the prostate measuring 5.2 x 3.4 x 2.6 cm. Signer Name: Sunny Harper MD Signed: 11/13/2019 1:04 AM Workstation Name: [id number] Critical care attestation.: If time is entered above; I have spent that time in minutes in the direct care of this critically ill patient, excluding procedure time. ED Disposition Clinical Impression: Perirectal abscess, HIV positive Disposition: OP ADMIT IP TO THIS HOSP Is pt being admited?: Yes Does the pt Need Aspirin: No Condition: Good Referrals: PRIMARY CARE, [Primary Care Provider] - 3-5 Days
[2019-11-13] MEDS ORDERED: HYDROmorphone 1 MG/1 ML INJ ONE ×2 (00:39→14:08)
[2019-11-13] MEDS ORDERED: SODIUM CHLORIDE 0.9% 1000 ML 1,000 ML ONE ×2 (00:39→03:25)
[2019-11-13 01:07] LABS: Basophils # (Auto) 0.1 K/mm3 (0.0-0.1); Basophils % (Auto) 0.7 % (0.0-1.8); Eosinophils # (Auto) 0.1 K/mm3 (0.0-0.4); Eosinophils % (Auto) 1.1 % (0.0-4.3); Hematocrit 42.2 % (35.5-45.6); Hemoglobin 14.2 gm/dl (11.8-15.2); Lymphocytes # (Auto) 1.9 K/mm3 (1.2-5.4); Lymphocytes % (Auto) 19.3 % (13.4-35.0); Mean Corpuscular HGB Conc 34 % (32-34); Mean Corpuscular Volume 86 fl (84-94); Monocytes # (Auto) 0.9 K/mm3 (0.0-0.8); Monocytes % (Auto) 8.6 % (0.0-7.3); Platelet Count 262 K/mm3 (140-440); Red Blood Count 4.93 M/mm3 (3.65-5.03); Red Cell Distribution Width 13.6 % (13.2-15.2)
[2019-11-13 01:24] LABS: Alanine Aminotransferase 12 units/L (7-56); Albumin 4.5 g/dL (3.9-5); BUN/Creatinine Ratio 10; Blood Urea Nitrogen 9 mg/dL (9-20); Calcium 9.5 mg/dL (8.4-10.2); Hemolysis Index 12
--- NOTE | 2019-11-13 02:09 | Cat Scan Report ---
CT pelvis w con INDICATION / CLINICAL INFORMATION: MAIN: Pelvic pain, prostatitis versus perirectal abscess, 100CC [id number]. TECHNIQUE: Routine CT of the pelvis with IV contrast All CT scans at this location are performed using CT dose r eduction for ALARA by means of automated exposure control. COMPARISON: 11/01/2018. FINDINGS: There is a large multiloculated perirectal abscess that measures about 5.2 x 3.4 x 2.6 cm. It is sign ificantly enlarged when compared to the prior exam. The urinary bladder is unremarkable. The perirectal abscess is immediately adjacent to the prostate. No additional inflammatory abnormalit y is appreciated. IMPRESSION: Large multiloculated perirectal abscess immediately adjacent to the left lobe of the pros murphy measuring 5.2 x 3.4 x 2.6 cm. Signer Name: Sunny Harper MD Signed: 11/13/2019 2:04 AM Workstation Name: [id number]
[2019-11-13] MEDS ORDERED: metroNIDAZOLE/NS 500 MG/100 ML 500 MG/100 ML BAG IV ONE ×2 (02:12→03:25)
[2019-11-13] MEDS ORDERED: ONDANSETRON 4 MG/2 ML INJ IV PRN ×2 (02:46→14:13)
[2019-11-13] MEDS ORDERED: ACETAMINOPHEN 325 MG TAB PO PRN (02:46)
--- NOTE | 2019-11-13 03:00 | History and Physical Report ---
History of Present Illness Date of examination: 11/13/19 Date of admission: 11/13/2019 Chief complaint: Rectal pain History of present illness: Patient is a 29-year-old -Spanish male with known history of HIV positive presenting to the emergency room today complaining of perirectal pain. He has known history of perirectal abscess in the past. He states that he has been having burning pelvic pain for the past 3 to 4 days. He has also had some intermittent dysuria but no hematuria. He denies any chest pain or shortness of breath, no nausea vomiting, no abdominal pain. He indicates that he has had some difficulty defecating because of the pain. He denies any rectal discharge or bleeding per rectum. Patient also admits to having one sexual partner and endorses receptive anal intercourse with condoms. Upon arrival in the emergency room patient had some IV analgesic medication with improvement. Pelvic CT reveals large multiloculated perirectal abscess. General surgeon Dr. Sargent was notified by the ER physician and patient will be promptly evaluated. Past History Past Medical History: HIV/AIDS Past Surgical History: No surgical history Social history: no significant social history Family history: no significant family history Medications and Allergies Allergies Allergy/AdvReac Type Severity Reaction Status Date / Time No Known Allergies Allergy Verified 11/01/18 07:25 Home Medications Medication Instructions Recorded Confirmed Last Taken Type Docusate Sodium [Colace CAP] 100 mg PO BID #14 capsule 11/03/18 Unknown Rx HYDROcodone/APAP 5-325 [[place] 1 each PO Q6H PRN #15 tablet 11/03/18 Unknown Rx 5-325 mg TAB] Truvada 133 mg-200 mg Tablet 133 mg PO DAILY 11/03/18 11/03/18 11/03/18 11:40 History levoFLOXacin [Levaquin TAB] 500 mg PO Q24HR #10 tablet 11/03/18 Unknown Rx metroNIDAZOLE [Flagyl TAB] 500 mg PO Q8H #30 tablet 11/03/18 Unknown Rx Active Meds: Active Medications Acetaminophen (Tylenol) 650 mg PO Q4H PRN PRN Reason: Pain MILD(1-3)/Fever >100.5/LOPEZ Levofloxacin/Dextrose (Levaquin 500mg/100ml) 500 mg in 100 mls @ 100 mls/hr IV ONCE ONE; Protocol Stop: 11/13/19 03:11 Sodium Chloride (Nacl 0.9% 1000 Ml) 1,000 mls @ 125 mls/hr IV DIRECT RL Levofloxacin/Dextrose (Levaquin 750mg/150ml) 750 mg in 150 mls @ 100 mls/hr IV Q24HR RL; Protocol Metronidazole (Flagyl 500 Mg/100 Ml) 500 mg in 100 mls @ 100 mls/hr IV Q8HR RL; Protocol Morphine Sulfate (Morphine) 2 mg IV Q4H PRN PRN Reason: Pain, Moderate (4-6) Ondansetron HCl (Zofran) 4 mg IV Q8H PRN PRN Reason: Nausea And Vomiting Sodium Chloride (Sodium Chloride Flush Syringe 10 Ml) 10 ml IV BID RL Sodium Chloride (Sodium Chloride Flush Syringe 10 Ml) 10 ml IV PRN PRN PRN Reason: LINE FLUSH Review of Systems Constitutional: no fever, no chills Cardiovascular: no chest pain, no palpitations Respiratory: no cough, no shortness of breath Gastrointestinal: no abdominal pain, no nausea, no vomiting, no diarrhea Genitourinary Male: dysuria, no hematuria, no urinary frequency, no urinary hesitancy Rectal: other (Rectal pain), no bleeding Musculoskeletal: no neck pain, no low back pain Integumentary: no rash, no pruritis Neurological: no headaches, no confusion Psychiatric: no anxiety, no paranoia, no depression Exam - Constitutional Vitals: Temp Pulse Resp BP Pulse Ox 98.3 F 102 H 15 131/72 97 11/12/19 23:23 11/13/19 02:00 11/13/19 02:00 11/13/19 02:00 11/13/19 02:00 General appearance: Present: no acute distress, well-nourished - EENT Eyes: Present: PERRL, EOM intact ENT: hearing intact, clear oral mucosa, dentition normal - Neck Neck: Present: supple, normal ROM - Cardiovascular Rhythm: regular Heart Sounds: Present: S1 & S2 - Extremities Extremities: no ischemia, No edema, Full ROM Peripheral Pulses: within normal limits - Abdominal General gastrointestinal: Present: soft, non-tender, non-distended, normal bowel sounds - Rectal Rectal Exam: other (Moderate tenderness in the perianal area, no obvious swelling) - Integumentary Integumentary: Present: clear, warm, dry - Musculoskeletal Musculoskeletal: strength equal bilaterally - Psychiatric Psychiatric: appropriate mood/affect, intact judgment & insight, cooperative - Neurologic Neurologic: CNII-XII intact, moves all extremities Results - Labs CBC & Chem 7: 11/13/19 00:44 11/13/19 00:44 Labs: Abnormal lab results 11/13/19 11/13/19 Range/Units 00:44 00:44 [place] % (Auto) 8.6 H (0.0-7.3) % [place] # 0.9 H (0.0-0.8) K/mm3 Seg Neutrophils % 70.3 H (40.0-70.0) % Glucose 107 H (75-100) mg/dL Total Creatine Kinase 28 L (55-170) units/L Total Protein 8.6 H (6.3-8.2) g/dL Assessment and Plan - Patient Problems (1) Perirectal abscess Current Visit: Yes Status: Acute Plan to address problem: Patient placed on empiric IV antibiotics. He has been placed on IV Levaquin and metronidazole. General surgeon Dr. Sargent has been notified. He has had history of perirectal abscess in the past (2) HIV positive Current Visit: Yes Status: Acute Plan to address problem: Patient on anti-viral agent. He follows up with a primary physician. He does not know his CD4 count. (3) DVT prophylaxis Current Visit: Yes Status: Acute Plan to address problem: Patient on sequential compression device meanwhile. Will hold anticoagulation in view of possible surgery. (4) Full code status Current Visit: Yes Status: Acute
[2019-11-13] MEDS ORDERED: MORPHINE 2 MG/1 ML INJ ONE (03:26)
[2019-11-13] MEDS: MORPHINE 2 MG/1 ML INJ IV PRN ×3 (03:30→13:36)
[2019-11-13] MEDS: SODIUM CHLORIDE 0.9% 1000 ML 1,000 ML IV SCH (03:30)
[2019-11-13] MEDS ORDERED: LIDOCAINE JELLY (2%) 5 ML TOPICAL ONE (04:15)
[2019-11-13] MEDS ORDERED: LIDOCAINE JELLY (2%) 5 ML TOPICAL TP ONE (04:30)
[2019-11-13 04:49] LABS: Bilirubin,Urine NEG (Negative); Blood,Urine NEG (Negative); Color,Urine Yellow (Yellow); Mucus,Urine FEW /HPF; Protein,Urine <15 mg/dL mg/dL (Negative)
[2019-11-13] MEDS: metroNIDAZOLE/NS 500 MG/100 ML 500 MG/100 ML BAG IV SCH ×3 (06:27→21:22)
--- NOTE | 2019-11-13 12:38 | Progress Note ---
Assessment and Plan /Perirectal abscess Patient placed on empiric IV Levaquin and metronidazole. General surgeon Dr. Sargent has been notified. He has had history of perirectal abscess in the past but didnot complete abx regimen and didnot f/u outpt Plan for I and D today / HIV positive Patient on anti-viral agent. He follows up with a primary physician. He does not know his CD4 count. / DVT prophylaxis Patient on sequential compression device. /Full code status 11/12: Plan for I and D today, follow cx, cont abx Brief History: Patient is a 29-year-old -Turkish male with known history of HIV positive, and history of perirectal abscess in the past presenting to the emergency room today complaining of perirectal pain. Upon arrival in the emergency room patient had some IV analgesic medication with improvement. Pelvic CT reveals large multiloculated perirectal abscess. General surgeon Dr. Sargent was notified by the ER physician and admitted for further mx. Subjective Date of service: 11/13/19 Interval history: Patient seen and examined c/o perirectal pain Plan for I and D today denies any new issue Objective - Exam Narrative Exam: General appearance: Present: no acute distress, well-nourished - EENT Eyes: Present: PERRL, EOM intact ENT: hearing intact, clear oral mucosa, dentition normal - Neck Neck: Present: supple, normal ROM - Cardiovascular Rhythm: regular Heart Sounds: Present: S1 & S2 - Extremities Extremities: no ischemia, No edema, Full ROM Peripheral Pulses: within normal limits - Abdominal General gastrointestinal: Present: soft, non-tender, non-distended, normal bowel sounds - Integumentary Integumentary: Present: clear, warm, dry - Musculoskeletal Musculoskeletal: strength equal bilaterally - Psychiatric Psychiatric: appropriate mood/affect, intact judgment & insight, cooperative - Neurologic Neurologic: CNII-XII intact, moves all extremities - Constitutional Vitals: Vital Signs - 12hr 11/13/19 11/13/19 11/13/19 00:41 01:00 02:00 Temperature Pulse Rate 111 H 96 H 102 H Respiratory 20 21 15 Rate Blood Pressure 134/76 131/72 O2 Sat by Pulse 97 97 Oximetry 11/13/19 11/13/19 11/13/19 02:30 03:00 03:30 Temperature Pulse Rate 88 91 H 76 Respiratory 17 20 12 Rate Blood Pressure 135/79 126/78 135/70 O2 Sat by Pulse 98 99 100 Oximetry 11/13/19 11/13/19 11/13/19 04:00 04:10 04:20 Temperature Pulse Rate 91 H 95 H 102 H Respiratory 15 20 26 H Rate Blood Pressure 135/76 135/76 135/76 O2 Sat by Pulse 97 97 99 Oximetry 11/13/19 11/13/19 11/13/19 04:30 04:40 04:50 Temperature Pulse Rate 73 104 H 88 Respiratory 16 30 H 11 L Rate Blood Pressure 135/76 130/78 130/78 O2 Sat by Pulse 99 97 Oximetry 11/13/19 11/13/19 11/13/19 05:13 07:15 12:04 Temperature 99.7 F H 99.8 F H 99.4 F Pulse Rate 96 H 87 94 H Respiratory 18 19 18 Rate Blood Pressure 129/74 128/78 120/73 O2 Sat by Pulse 99 99 99 Oximetry - Labs CBC & Chem 7: 11/14/19 05:28 11/14/19 05:28 Labs: Abnormal lab results 11/13/19 11/13/19 11/13/19 Range/Units 00:44 00:44 04:15 [place] % (Auto) 8.6 H (0.0-7.3) % [place] # 0.9 H (0.0-0.8) K/mm3 Seg Neutrophils % 70.3 H (40.0-70.0) % Glucose 107 H (75-100) mg/dL Total Creatine Kinase 28 L (55-170) units/L Total Protein 8.6 H (6.3-8.2) g/dL Ur Specific [place] 1.058 H (1.003-1.030)
--- NOTE | 2019-11-13 13:24 | Consultation ---
History of Present Illness Consult date: 11/13/19 Reason for consult: other (perirectal abscess) Requesting physician: LIZETH TORRES Chief complaint: perianal pain - History of present illness History of present illness: 29yo M with HIV presents with a 3 to 4-day history of perianal pain. He had a similar situation 1 year ago when he presented with the same symptoms. He was found to have a perirectal abscess and taken to the OR by Dr. Anderson. Incision and drainage was done along with catheter placement for drainage. Patient reports a catheter fell at the same day. He never went for follow-up. He resumed anal intercourse 2 months after the surgery. Patient reports that his current symptoms are very similar to what happened last year. No other complaints or concerns. Past History Past Medical History: HIV/AIDS Past Surgical History: Other (Perirectal abscess I&D - 2019) Social history: no significant social history. denies: smoking, alcohol abuse, prescription drug abuse, IV drug use Family history: no significant family history Medications and Allergies Allergies Allergy/AdvReac Type Severity Reaction Status Date / Time No Known Allergies Allergy Verified 11/01/18 07:25 Home Medications Medication Instructions Recorded Confirmed Last Taken Type Docusate Sodium [Colace CAP] 100 mg PO BID #14 capsule 11/03/18 Unknown Rx HYDROcodone/APAP 5-325 [[place] 1 each PO Q6H PRN #15 tablet 11/03/18 Unknown Rx 5-325 mg TAB] Truvada 133 mg-200 mg Tablet 133 mg PO DAILY 11/03/18 11/03/18 11/03/18 11:40 History levoFLOXacin [Levaquin TAB] 500 mg PO Q24HR #10 tablet 11/03/18 Unknown Rx metroNIDAZOLE [Flagyl TAB] 500 mg PO Q8H #30 tablet 11/03/18 Unknown Rx Active Meds: Active Medications Acetaminophen (Tylenol) 650 mg PO Q4H PRN PRN Reason: Pain MILD(1-3)/Fever >100.5/LOPEZ Sodium Chloride (Nacl 0.9% 1000 Ml) 1,000 mls @ 125 mls/hr IV DIRECT RL Last Admin: 11/13/19 03:30 Dose: 125 mls/hr Documented by: Levofloxacin/Dextrose (Levaquin 750mg/150ml) 750 mg in 150 mls @ 100 mls/hr IV Q24HR RL; Protocol Metronidazole (Flagyl 500 Mg/100 Ml) 500 mg in 100 mls @ 100 mls/hr IV Q8HR RL; Protocol Last Admin: 11/13/19 06:27 Dose: 100 mls/hr Documented by: Morphine Sulfate (Morphine) 2 mg IV Q4H PRN PRN Reason: Pain, Moderate (4-6) Last Admin: 11/13/19 07:51 Dose: 2 mg Documented by: Ondansetron HCl (Zofran) 4 mg IV Q8H PRN PRN Reason: Nausea And Vomiting Sodium Chloride (Sodium Chloride Flush Syringe 10 Ml) 10 ml IV BID RL Sodium Chloride (Sodium Chloride Flush Syringe 10 Ml) 10 ml IV PRN PRN PRN Reason: LINE FLUSH Review of Systems - Constitutional no weight loss, no weight gain, no fever, no chills, no chronic pain - Cardiovascular no chest pain, no shortness of breath - Respiratory no cough - Gastrointestinal no abdominal pain, no nausea, no vomiting, no BRBPR, no hematochezia - Genitourinary no flank pain - Muskuloskeletal no low back pain - Integumentary no rash, no sores, no wounds Exam Vital Signs Temp Pulse Resp BP Pulse Ox 98.3 F 127 H 18 114/70 100 11/12/19 23:23 11/12/19 23:23 11/12/19 23:23 11/12/19 23:23 11/12/19 23:23 - General physical appearance Positive: well developed, well nourished, no distress, no pain, other (very pleasant. Appears well) - Eyes Positive: normal occular movement - Respiratory Positive: normal expansion, normal respiratory effort - Cardiovascular Rhythm: regular - Integumentary no rash, no growths, no abnormal pigmentation - Neurologic Neurologic: alert and oriented to time, place and person, motor strength and sensation are grossly intact - Psychiatric Psychiatric: appropriate mood/affect, intact judgment & insight, cooperative Results - Labs 11/13/19 00:44 11/13/19 00:44 Abnormal lab results 11/13/19 11/13/19 11/13/19 Range/Units 00:44 00:44 04:15 [place] % (Auto) 8.6 H (0.0-7.3) % [place] # 0.9 H (0.0-0.8) K/mm3 Seg Neutrophils % 70.3 H (40.0-70.0) % Glucose 107 H (75-100) mg/dL Total Creatine Kinase 28 L (55-170) units/L Total Protein 8.6 H (6.3-8.2) g/dL Ur Specific [place] 1.058 H (1.003-1.030) Diabetes panel 11/13/19 Range/Units 00:44 Sodium 138 (137-145) mmol/L Potassium 3.7 (3.6-5.0) mmol/L Chloride 98.0 (98-107) mmol/L Carbon Dioxide 22 (22-30) mmol/L BUN 9 (9-20) mg/dL Creatinine 0.9 (0.8-1.5) mg/dL Glucose 107 H (75-100) mg/dL Calcium 9.5 (8.4-10.2) mg/dL AST 13 (5-40) units/L ALT 12 (7-56) units/L Alkaline Phosphatase 80 (35-129) units/L Total Protein 8.6 H (6.3-8.2) g/dL Albumin 4.5 (3.9-5) g/dL Calcium panel 11/13/19 Range/Units 00:44 Calcium 9.5 (8.4-10.2) mg/dL Albumin 4.5 (3.9-5) g/dL Pituitary panel 11/13/19 Range/Units 00:44 Sodium 138 (137-145) mmol/L Potassium 3.7 (3.6-5.0) mmol/L Chloride 98.0 (98-107) mmol/L Carbon Dioxide 22 (22-30) mmol/L BUN 9 (9-20) mg/dL Creatinine 0.9 (0.8-1.5) mg/dL Glucose 107 H (75-100) mg/dL Calcium 9.5 (8.4-10.2) mg/dL Adrenal panel 11/13/19 Range/Units 00:44 Sodium 138 (137-145) mmol/L Potassium 3.7 (3.6-5.0) mmol/L Chloride 98.0 (98-107) mmol/L Carbon Dioxide 22 (22-30) mmol/L BUN 9 (9-20) mg/dL Creatinine 0.9 (0.8-1.5) mg/dL Glucose 107 H (75-100) mg/dL Calcium 9.5 (8.4-10.2) mg/dL Total Bilirubin 0.40 (0.1-1.2) mg/dL AST 13 (5-40) units/L ALT 12 (7-56) units/L Alkaline Phosphatase 80 (35-129) units/L Total Protein 8.6 H (6.3-8.2) g/dL Albumin 4.5 (3.9-5) g/dL - Imaging CT scan - pelvis: report reviewed, image reviewed Assessment and Plan - Patient Problems (1) Perirectal abscess Current Visit: Yes Status: Acute Plan to address problem: Pt stable. Patient has a recurrent perirectal abscess. It appears worse than last time. This is not unexpected as he did not complete his treatment the first time. He never followed up with Dr. Anderson. Patient understands the importance of the follow-up now. Patient in need of exam under anesthesia and formal incision and drainage in the operating room. Procedure, risk, benefits were explained. All questions were answered. Consent was obtained. Patient understands that he is at high risk for recurrence and he may ultimately need to see a colorectal surgeon for definitive management. Patient also understand that he is at risk for injury to surrounding structures due to the large infection. We will proceed to the OR today. Time=30min
[2019-11-13] MEDS ORDERED: LIDOCAINE 2% UROJECT 10 ML JELLY ONE (13:51)
[2019-11-13] MEDS ORDERED: BUPIVACAINE/PF (0.5%) 5 MG/1 ML 30 ML VIAL INFILTRATI ONE ×3 (13:51→14:57)
[2019-11-13] MEDS ORDERED: LIDOCAINE (1%) 10 MG/1 ML VIAL 20 ML MDV ONE (13:51)
[2019-11-13] MEDS ORDERED: propofoL 200 MG/20 ML VIAL IV ONE (14:08)
[2019-11-13] MEDS ORDERED: fentaNYL 100 MCG/2 ML INJ IV PRN (14:13)
[2019-11-13] MEDS ORDERED: ROCURONIUM 50 MG/5 ML INJ IV ONE (14:51)
[2019-11-13] MEDS ORDERED: LIDOCAINE MPF (2%) 20 MG/1 ML VIAL 5 ML ONE (14:51)
[2019-11-13] MEDS ORDERED: LIDOCAINE (1%) 10 MG/1 ML VIAL 20 ML MDV INFILTRATI ONE ×2 (14:57)
[2019-11-13] MEDS ORDERED: LIDOCAINE 2% UROJECT 10 ML JELLY UR ONE (14:58)
[2019-11-13] MEDS ORDERED: SODIUM CHLORIDE 0.9% IRR 1,000 ML BOTTLE IR ONE (14:58)
[2019-11-13] MEDS ORDERED: LACTATED RINGERS 1,000 ML ONE ×2 (15:02→15:25)
[2019-11-13] MEDS ORDERED: GLYCOPYRROLATE 0.4 MG/2 ML INJ ONE (15:22)
[2019-11-13] MEDS ORDERED: NEOSTIGMINE 10MG/10 ML INJ MDV ONE (15:22)
[2019-11-13] MEDS ORDERED: KETOROLAC 30 MG/1 ML INJ ONE (15:22)
--- NOTE | 2019-11-13 15:40 | Post Operative Note ---
Date of procedure: 11/13/19 (dictation:[id number]) Pre-op diagnosis: perirectal abscess - recurrent Post-op diagnosis: same Findings: large, loculated abscess cavity on the left side of the rectum. Procedure: Exam under anesthesia Left Pudendal nerve block I&D of perirectal abscess IVF 1L EBL ~50cc Anesthesia: KULDEEP Surgeon: JUANJOSE MCNAMARA Estimated blood loss: 50-100ml Pathology: list (culture swabs) Specimen disposition: to lab Condition: stable Disposition: PACU
--- NOTE | 2019-11-13 15:58 | Operative Report ---
PREOPERATIVE DIAGNOSIS: Recurrent perirectal abscess. POSTOPERATIVE DIAGNOSIS: Recurrent perirectal abscess. PROCEDURES: 1. Exam under anesthesia. 2. Left pudendal nerve block. 3. Incision and drainage of complicated perirectal abscess. ATTENDING PHYSICIAN: Hannah Sargent MD ANESTHESIA: General. ESTIMATED BLOOD LOSS: Approximately 50 mL. FLUIDS: 1 liter. FINDINGS: Large bulging abscess cavity on the left side of the rectum. The cavity was bulging into the lumen of the rectum. Abscess cavity appears to be above the levator muscles. I did not see any involvement of the ischiorectal area, this is the same location as the infection that he had one year ago. SPECIMENS: Culture swabs. DRAINS: None. COMPLICATIONS: None DISPOSITION: Stable, transferred to Recovery Room. INDICATIONS: This is a 29-year-old male who previously presented to [facility] one year ago with a left perirectal abscess, I and D was performed by my partner. He now returns with the same symptoms abscess appears to be worse, this is now a year later. The patient is assessed to be need for incision and drainage in the operating room. Procedure, risks, benefits were explained to the patient. Risks include but were not limited to infection, bleeding, pain, injury to surrounding structures, possible recurrence, possible need for more advanced procedures in the future. The patient may ultimately need to see a colorectal surgeon. The patient understood and consented. All questions were answered. OPERATIVE NOTE: The patient was brought to the operating room and placed on the table in supine position. After adequate general anesthesia was established, the patient was placed in prone jackknife position. All pressure points were padded. Sterile prep and drape was performed. Time-out was called. I began by doing an exam under anesthesia. Once we put the retractors in, we saw a very large mass bulging into the lumen of the rectum, this corresponded with the CT findings where the abscess was located to confirm, an 18-gauge needle and syringe was inserted into the mass. We had immediate aspiration of purulent material. Once we had confirmed the location and left the needle in place, I went ahead and proceeded to do a left pudendal nerve block. I palpated the ischial spine, needle was guided to that location aspirating as we went along. Once we made contact with the spine, I then slowly retracted and administering the local medication. The patient tolerated the procedure well. We then returned our attention to the abscess cavity on the needle itself. I then sharply opened up the mucosa. We had a large amount of purulent material that drained out. I inserted a finger to break up all the loculations keeping in mind the general configuration of all the loculations from the CT scan, I tried to make sure I went and all of those directions, I feel as though I did get to all of the pockets. I then evaluated the situation as this abscess was supralevator in position. My concern of trying to bring a drain out laterally was that I would damage these muscles and/or interfere with his continence. Therefore, this idea was not acceptable. Previously 1 year ago when this was done, a [place] catheter was placed. The patient reports that it fell out that same day. Therefore, I elected not to go with that route. We thoroughly washed out the cavity. I made sure that the opening was large. A cruciate incision was made, my finger easily went in there. I decided this time that we would try packing it with iodoform gauze to get to all parts of it to try to thoroughly clean it out. My plan being that in 1 to 2 days, we will have the patient remove it. He will begin sitz baths as we have a fairly large incision. Hopefully, it will stay open long enough at this time and he will do the appropriate followup such that we can make sure that it healed appropriately and potentially rescan him in the future to make sure that was completely resolved. At the end of the case, after we cleaned everything up, we inserted a Surgifoam covered with lidocaine gel. The patient tolerated the procedure well. There were no complications. All counts were correct at the end of the case. JOB# [id number] PAP[place]
--- NOTE | 2019-11-13 16:02 | Post Anesthesia Evaluation ---
- Post Anesthesia Evaluation Patient Participated: Yes Airway Patent: Yes Stable Respiratory Function: Yes Nausea/Vomiting: No Temp > 96.8F: Yes Pain Manageable: Yes Adequeate Hydration: Yes Anesthesia Complications: No Block Receding Appropriately: Not Applicable Patient on Ventilator: No
--- NOTE | 2019-11-13 16:05 | Anesthesia Day of Surgery ---
Anesthesia Day of Surgery - Day of Surgery Patient Examined: Yes Patient H&P Reviewed: Yes Patient is NPO: Yes
--- NOTE | 2019-11-13 16:07 | Anesthesia Consultation ---
Anesthesia Consult and Med Hx Date of service: 11/13/19 - Airway ROM Head & Neck: Adequate Mental/Hyoid Distance: Adequate Mallampati Class: Class I Intubation Access Assessment: Good - Pre-Operative Health Status ASA Pre-Surgery Classification: ASA2, Emergency Proposed Anesthetic Plan: General - Pulmonary Hx Asthma: No COPD: No Hx Pneumonia: No - Endocrine Hx End Stage Renal Disease: No - Additional Comments Anesthesia Medical History Comments: HIV+. was here a year ago for similar procedure
[2019-11-13] MEDS ORDERED: HYDROcodone/ACETAMINOPHEN 5-325 MG TAB PO PRN (18:04)
[2019-11-14] MEDS: KETOROLAC 30 MG/1 ML INJ IV SCH ×6 (06:08→23:28)
[2019-11-14] MEDS: metroNIDAZOLE/NS 500 MG/100 ML 500 MG/100 ML BAG IV SCH ×3 (06:10→22:39)
[2019-11-14 06:13] LABS: BUN/Creatinine Ratio 10; Basophils % (Auto) 0.3 % (0.0-1.8); Blood Urea Nitrogen 8 mg/dL (9-20); Calcium 8.3 mg/dL (8.4-10.2); Eosinophils # (Auto) 0.2 K/mm3 (0.0-0.4); Eosinophils % (Auto) 2.9 % (0.0-4.3); Hematocrit 35.2 % (35.5-45.6); Hemoglobin 11.9 gm/dl (11.8-15.2); Mean Corpuscular HGB Conc 34 % (32-34); Mean Corpuscular Volume 85 fl (84-94); Monocytes # (Auto) 0.6 K/mm3 (0.0-0.8); Platelet Count 227 K/mm3 (140-440); Red Blood Count 4.15 M/mm3 (3.65-5.03); Red Cell Distribution Width 13.5 % (13.2-15.2)
[2019-11-14 06:22] LABS: INR 1.22 (0.87-1.13)
--- NOTE | 2019-11-14 09:39 | Progress Note ---
Assessment and Plan - Patient Problems (1) Perirectal abscess Current Visit: Yes Status: Acute Plan to address problem: Pt stable. s/p EUA, I&D of recurrent perirectal abscess - 11/12 - POD#1 -patient is feeling much better. We had a long discussion that this was a very complicated problem. He is at high risk for recurrence. Advised him to slowly pull out the packing with each bowel movement. This may be our best chance to keep the area clean and allow it to heal in. If he is able, would like to get a repeat CT scan in 3 months to see if there is any residual fluid collection. Recommendations: 1. Once culture results are back, okay to send home on antibiotics to complete a two-week course. 2. Follow-up in general surgery clinic 1 week after discharge 3. Slowly pullout portions of the packing with each bowel movement. I explained how to do this to the patient. Please call with any questions Subjective Date of service: 11/14/19 Patient Reports: Positive: no new complaints, feels better, pain is less. Negative: nausea, vomiting Objective Vital Signs - 12hr 11/13/19 11/14/19 11/14/19 22:00 00:04 03:51 Temperature 100.2 F H 98.6 F Pulse Rate 97 H 89 Respiratory 18 18 Rate Respiratory 16 Rate [Sacrum] Blood Pressure 118/74 115/69 O2 Sat by Pulse 100 98 Oximetry 11/14/19 11/14/19 06:08 08:36 Temperature Pulse Rate Respiratory 17 17 Rate Respiratory Rate [Sacrum] Blood Pressure O2 Sat by Pulse Oximetry - General physical appearance no distress, no pain, other (looks better) - Respiratory normal expansion, normal respiratory effort - Psychiatric oriented to time, oriented to person, oriented to place, speech is normal, memory intact - Labs 11/14/19 05:28 11/14/19 05:28 Diabetes panel 11/14/19 Range/Units 05:28 Sodium 138 (137-145) mmol/L Potassium 3.7 (3.6-5.0) mmol/L Chloride 100.7 (98-107) mmol/L Carbon Dioxide 23 (22-30) mmol/L BUN 8 L (9-20) mg/dL Creatinine 0.8 (0.8-1.5) mg/dL Glucose 91 (75-100) mg/dL Calcium 8.3 L (8.4-10.2) mg/dL Calcium panel 11/14/19 Range/Units 05:28 Calcium 8.3 L (8.4-10.2) mg/dL Pituitary panel 11/14/19 Range/Units 05:28 Sodium 138 (137-145) mmol/L Potassium 3.7 (3.6-5.0) mmol/L Chloride 100.7 (98-107) mmol/L Carbon Dioxide 23 (22-30) mmol/L BUN 8 L (9-20) mg/dL Creatinine 0.8 (0.8-1.5) mg/dL Glucose 91 (75-100) mg/dL Calcium 8.3 L (8.4-10.2) mg/dL Adrenal panel 11/14/19 Range/Units 05:28 Sodium 138 (137-145) mmol/L Potassium 3.7 (3.6-5.0) mmol/L Chloride 100.7 (98-107) mmol/L Carbon Dioxide 23 (22-30) mmol/L BUN 8 L (9-20) mg/dL Creatinine 0.8 (0.8-1.5) mg/dL Glucose 91 (75-100) mg/dL Calcium 8.3 L (8.4-10.2) mg/dL
--- NOTE | 2019-11-14 10:16 | Progress Note ---
Assessment and Plan /Perirectal abscess Patient placed on empiric IV Levaquin and metronidazole. General surgeon Dr. Sargent has been notified. He has had history of perirectal abscess in the past but didnot complete abx regimen and didnot f/u outpt s/p I and D by GS, wait for final cx report for d/c planning / HIV positive Patient on anti-viral agent. He follows up with a primary physician. He does not know his CD4 count. / DVT prophylaxis Patient on sequential compression device. /Full code status 11/12: Plan for I and D today, follow cx, cont abx 11/13; cont iv abx, follow cx report, consult ID Brief History: Patient is a 29-year-old -[place] male with known history of HIV positive, and history of perirectal abscess in the past presenting to the emergency room today complaining of perirectal pain. Upon arrival in the emergency room patient had some IV analgesic medication with improvement. Pelvic CT reveals large multiloculated perirectal abscess. General surgeon Dr. Sargent was notified by the ER physician and admitted for further mx. Subjective Date of service: 11/14/19 Interval history: Patient seen and examined denies any new issue, feeling better afebrile Objective - Exam Narrative Exam: General appearance: Present: no acute distress, well-nourished - EENT Eyes: Present: PERRL, EOM intact ENT: hearing intact, clear oral mucosa, dentition normal - Neck Neck: Present: supple, normal ROM - Cardiovascular Rhythm: regular Heart Sounds: Present: S1 & S2 - Extremities Extremities: no ischemia, No edema, Full ROM Peripheral Pulses: within normal limits - Abdominal General gastrointestinal: Present: soft, non-tender, non-distended, normal bowel sounds - Integumentary Integumentary: Present: clear, warm, dry - Musculoskeletal Musculoskeletal: strength equal bilaterally - Psychiatric Psychiatric: appropriate mood/affect, intact judgment & insight, cooperative - Neurologic Neurologic: CNII-XII intact, moves all extremities - Constitutional Vitals: Vital Signs - 12hr 11/14/19 11/14/19 11/14/19 00:04 03:51 06:08 Temperature 100.2 F H 98.6 F Pulse Rate 97 H 89 Respiratory 18 18 17 Rate Blood Pressure 118/74 115/69 O2 Sat by Pulse 100 98 Oximetry 11/14/19 08:36 Temperature Pulse Rate Respiratory 17 Rate Blood Pressure O2 Sat by Pulse Oximetry - Labs CBC & Chem 7: 11/14/19 05:28 11/14/19 05:28 Labs: Abnormal lab results 11/14/19 11/14/19 11/14/19 Range/Units 05:28 05:28 05:28 Hct 35.2 L D (35.5-45.6) % [place] % (Auto) 10.0 H (0.0-7.3) % PT 15.5 H (12.2-14.9) Sec. INR 1.22 H (0.87-1.13) BUN 8 L (9-20) mg/dL Calcium 8.3 L (8.4-10.2) mg/dL
--- NOTE | 2019-11-14 13:54 | Consultation ---
History of Present Illness - Reason for Consult Consult date: 11/14/19 Perirectal abscess Requesting physician: PEBBLES ORTIZ - History of Present Illness The patient is a 29-year-old male with HIV, MSM behavior with history of anal receptive intercourse, previous history of perirectal abscess requiring I&D in October 2018 was admitted on 11/13/2019 with complaints of rectal pain. His CT of the pelvis revealed a large multiloculated perirectal abscess. He was seen by general surgery, underwent exam under anesthesia and I&D of perirectal abscess on 11/13/2019. He takes Complera, follows up with Dr. Cortez at the [facility]. States his VL is undetectable, doesn't remember his CD4 count. Review of Systems: General: no fevers,chills or rigors HEENT: no new visual disturbance Respiratory: No cough, sputum, hemoptysis or shortness of breath Cardiovascular: No chest pain, syncope Gastrointestinal: No nausea, vomiting or diarrhea Genitourinary: No dysuria or hematuria Musculoskeletal: No new or worsening neck pain or back pain Neurologic: No headaches, seizures Hematologic: No easy bruising or bleeding Endocrine: No night sweats or acute weight loss Skin: negative for rash, jaundice Psychiatric: No suicidal or homicidal ideation Past History Past Medical History: HIV/AIDS Past Surgical History: No surgical history Social history: no significant social history Family history: no significant family history Medications and Allergies Allergies Allergy/AdvReac Type Severity Reaction Status Date / Time No Known Allergies Allergy Verified 11/01/18 07:25 Home Medications Medication Instructions Recorded Confirmed Last Taken Type Docusate Sodium [Colace CAP] 100 mg PO BID #14 capsule 11/03/18 Unknown Rx HYDROcodone/APAP 5-325 [[place] 1 each PO Q6H PRN #15 tablet 11/03/18 Unknown Rx 5-325 mg TAB] Truvada 133 mg-200 mg Tablet 133 mg PO DAILY 11/03/18 11/03/18 11/03/18 11:40 History levoFLOXacin [Levaquin TAB] 500 mg PO Q24HR #10 tablet 11/03/18 Unknown Rx metroNIDAZOLE [Flagyl TAB] 500 mg PO Q8H #30 tablet 11/03/18 Unknown Rx Active Meds: Active Medications Acetaminophen (Tylenol) 650 mg PO Q4H PRN PRN Reason: Pain MILD(1-3)/Fever >100.5/LOPEZ Acetaminophen/Hydrocodone Bitart ([place] 5/325) 2 each PO Q6H PRN PRN Reason: Pain, Moderate (4-6) Fentanyl (Sublimaze) 50 mcg IV Q5MIN PRN PRN Reason: Pain , Severe (7-10) Sodium Chloride (Nacl 0.9% 1000 Ml) 1,000 mls @ 125 mls/hr IV DIRECT RL Last Admin: 11/13/19 03:30 Dose: 125 mls/hr Documented by: Levofloxacin/Dextrose (Levaquin 750mg/150ml) 750 mg in 150 mls @ 100 mls/hr IV Q24HR RL; Protocol Last Admin: 11/13/19 13:34 Dose: 100 mls/hr Documented by: Metronidazole (Flagyl 500 Mg/100 Ml) 500 mg in 100 mls @ 100 mls/hr IV Q8HR RL; Protocol Last Admin: 11/14/19 06:10 Dose: 100 mls/hr Documented by: Ketorolac Tromethamine (Toradol) 30 mg IV Q6HR RL Stop: 11/18/19 18:59 Last Admin: 11/14/19 08:36 Dose: Not Given Documented by: Morphine Sulfate (Morphine) 2 mg IV Q4H PRN PRN Reason: Pain , Severe (7-10) Last Admin: 11/13/19 13:36 Dose: 2 mg Documented by: Ondansetron HCl (Zofran) 4 mg IV Q8H PRN PRN Reason: Nausea And Vomiting Ondansetron HCl (Zofran) 4 mg IV ONCE PRN PRN Reason: Nausea And Vomiting Sodium Chloride (Sodium Chloride Flush Syringe 10 Ml) 10 ml IV BID [facility] Last Admin: 11/14/19 08:37 Dose: Not Given Documented by: Sodium Chloride (Sodium Chloride Flush Syringe 10 Ml) 10 ml IV PRN PRN PRN Reason: LINE FLUSH Physical Examination - Physical Exam Narrative exam: Physical Exam: Constitutional: Alert, cooperative. No acute distress Head, Ears, Nose: Normocephalic, atraumatic. External ears, nose normal Eyes: Conjunctivae/corneas clear. No icterus. No ptosis. Neck: Supple, no meningeal signs Oral: dentition fair, no thrush Cardiovascular: S1, S2 normal. Respiratory: Good air entry, clear to auscultation bilaterally GI: Soft, non-tender; bowel sounds normal. No peritoneal signs. Dressing present in rectal region Musculoskeletal: No pedal edema, no cyanosis. Skin: No rash or abscess Hem/Lymphatic: No palpable cervical or supraclavicular nodes. No lymphangitis Psych: Mood ok. Affect normal Neurological: Awake, alert, oriented. No gross abnormality - Constitutional Vitals: Vital Signs Temp Pulse Resp BP Pulse Ox 98.9 F 98 H 18 112/68 97 11/14/19 11:50 11/14/19 11:50 11/14/19 11:50 11/14/19 11:50 11/14/19 11:50 Temperature -Last 24 Hours Temperature 98.9 F Temperature 98.6 F Temperature 100.2 F Temperature 98.5 F Temperature 98.5 F Temperature 98.5 F Temperature 98.4 F Temperature 98.7 F Results - Labs CBC & Chem 7: 11/14/19 05:28 11/14/19 05:28 Labs: Abnormal lab results 11/14/19 11/14/19 11/14/19 Range/Units 05:28 05:28 05:28 Hct 35.2 L D (35.5-45.6) % [place] % (Auto) 10.0 H (0.0-7.3) % PT 15.5 H (12.2-14.9) Sec. INR 1.22 H (0.87-1.13) BUN 8 L (9-20) mg/dL Calcium 8.3 L (8.4-10.2) mg/dL - Imaging and Cardiology CT scan - pelvis: report reviewed, image reviewed (hillary-rectal abscess) Assessment and Plan Cultures: 11/13/2019 urine culture: No growth 11/13/2019 surgical culture: Group F Streptococcus A/P: 29-year-old male with HIV, MSM behavior with history of anal receptive intercourse, previous history of perirectal abscess requiring I&D in October 2018 was admitted on 11/13/2019 with complaints of rectal pain #Perirectal abscess: Status post I&D on 11/13/2019, findings, large, loculated abscess cavity on the left side of the rectum. #HIV: He takes Complera, follows up with Dr. Cortez at the [facility]. States his VL is undetectable, doesn't remember his CD4 count. Recs: 1 dose of IV ceftriaxone 2 g plus p.o. azithromycin 1 g x1 (to cover for GC) Continue Ceftriaxone + Flagyl while inpatient Upon discharge, PO Augmentin 875 mg twice daily + PO doxycycline 100 mg twice daily for 14 days Follow up with his HIV physician upon discharge Complera ordered here Rimma Rucker MD, FACP [facility] C: [phone] O: [phone] F: [phone]
[2019-11-14] MEDS ORDERED: AZITHROMYCIN 250 MG TAB PO ONE (14:00)
[2019-11-14] MEDS: MORPHINE 2 MG/1 ML INJ IV PRN (14:08)
[2019-11-14] MEDS ORDERED: COMPLERA PO SCH (14:45)
[2019-11-14] MEDS: cefTRIAXone/NS 2 GM/100 ML 2 GM/100 ML BAG IV SCH (17:06)
[2019-11-15] MEDS: metroNIDAZOLE/NS 500 MG/100 ML 500 MG/100 ML BAG IV SCH (05:04)
[2019-11-15] MEDS: KETOROLAC 30 MG/1 ML INJ IV SCH ×2 (05:05→12:10)
[2019-11-15] MEDS: cefTRIAXone/NS 2 GM/100 ML 2 GM/100 ML BAG IV SCH (09:11)
[2019-11-15] MEDS: SODIUM CHLORIDE 0.9% 1000 ML 1,000 ML IV SCH (09:11)
--- NOTE | 2019-11-15 10:28 | Discharge Summary ---
Providers - Providers Date of Admission: 11/13/19 03:05 Date of discharge: 11/15/19 Attending physician: PEBBLES ORTIZ 11/13/19 02:11 Consult to Physician [CONS] Urgent Comment: Consulting Provider: JUANJOSE SARGENT Physician Instructions: Reason For Exam: perirectal abscess 11/14/19 10:05 Consult to Physician [CONS] Routine Comment: Consulting Provider: LOGAN RAMIREZ Physician Instructions: Reason For Exam: perirectal abscess Primary care physician: RUBBER LINER Hospitalization Condition: Good Hospital course: Patient is a 29-year-old -[place] male with known history of HIV positive, and history of perirectal abscess in the past presented to the emergency room complaining of perirectal pain. Upon arrival in the emergency room patient had some IV analgesic medication with improvement. Pelvic CT revealed large multiloculated perirectal abscess. General surgeon Dr. Sargent was notified by the ER physician and patient was admitted for further mx. 11/12: s/p I and D by Dr Bhatia, follow wound cx, cont abx 11/13; cont iv abx, follow final cx report, consulted ID for discharge abx recommendation 11/14: Patient feeling better. Surgery cleared for discharge. d/c home today with augmentin and doxycycline for 2 weeks per ID recommendation. Discharge diagnosis and Mx: /Perirectal abscess Patient placed on empiric IV Levaquin and metronidazole. General surgeon Dr. Sargent consulted. He has had history of perirectal abscess in the past but didnot complete abx regimen and didnot f/u outpt s/p I and D by GS, patient was then discharged home with outpt f/u and oral abx / HIV positive Patient on anti-viral agent. He follows up with a primary physician. He does not know his CD4 count. / DVT prophylaxis Placed on sequential compression device. /Full code status Physical exam General appearance: Present: no acute distress, well-nourished - EENT Eyes: Present: PERRL, EOM intact ENT: hearing intact, clear oral mucosa, dentition normal - Neck Neck: Present: supple, normal ROM - Cardiovascular Rhythm: regular Heart Sounds: Present: S1 & S2 - Extremities Extremities: no ischemia, No edema, Full ROM Peripheral Pulses: within normal limits - Abdominal General gastrointestinal: Present: soft, non-tender, non-distended, normal bowel sounds - Integumentary Integumentary: Present: clear, warm, dry - Musculoskeletal Musculoskeletal: strength equal bilaterally - Psychiatric Psychiatric: appropriate mood/affect, intact judgment & insight, cooperative - Neurologic Neurologic: CNII-XII intact, moves all extremities Disposition: DC-01 TO HOME OR SELFCARE Time spent for discharge: 34 minutes Core Measure Documentation - Palliative Care Palliative Care/ Comfort Measures: Not Applicable - Core Measures Any of the following diagnoses?: none Exam - Constitutional Vitals: Temp Pulse Resp BP Pulse Ox 97.9 F 70 19 110/54 100 11/15/19 06:55 11/15/19 06:55 11/15/19 06:55 11/15/19 06:55 11/15/19 06:55 Plan Activity: advance as tolerated Weight Bearing Status: Weight Bear as Tolerated Diet: regular Wound: per your surgeon's advice Follow up with: ROBERTO WILKINS MD [Primary Care Provider] - 3-5 Days JUANJOSE SARGENT MD [Staff Physician] - 7 Days Prescriptions: Amoxicillin/K Clav Tab [Augmentin 875 mg] 1 tab PO Q12HR #28 tab Doxycycline Hyclate [Doxycycline Hyclate TAB] 100 mg PO Q12HR #28 tab Ibuprofen [Motrin 800 MG tab] 800 mg PO Q8HR PRN #20 tablet PRN Reason: Pain, Moderate (4-6)
[2019-11-15 11:55] VITALS: BP 122/63
== END 2019-11-15 13:33 | disposition home or self-care (01) | DRG 345 ==
LOC: ED 23:02 → 3B-SURG 11-13 03:05
PROVIDERS: ADMIT Internal Medicine Geriatric Medicine; ATTEND Internal Medicine
PROC: 0D9P7ZZ Drainage of Rectum, Via Natural or Artificial Opening (ICD-10-PCS; principal; 2019-11-13)
PROC: 3E0T3BZ Introduction of Anesthetic Agent into Peripheral Nerves and Plexi, Percutaneous Approach (ICD-10-PCS; 2019-11-13)
DX: K61.1 Rectal abscess (principal); B20 Human immunodeficiency virus [HIV] disease
CPT/HCPCS: 36415; 72193; 80048; 80053; 81001; 82550; 83735; 85025; 85610; 87075; 87076; 87086; 87116; 87186; G0378; J0696; J1170; J1885; J1956; J2270; J2704; J2710; J7030; J7120; Q9967

== ENCOUNTER 2020-05-14 09:52 | Emergency (ER) | payer SELFPAY ==
--- NOTE | 2020-05-14 13:29 | XRay Report ---
ABDOMEN 4 VIEW(S) INDICATION / CLINICAL INFORMATION: constipation. COMPARISON: None available. FINDINGS: TUBES / LINES: None. BOWEL GAS PATTERN: No dilated loops of small bowel. Constipation is noted. FREE AIR / EXTRALUMINAL GAS: None seen. ADDITIONAL FINDINGS: No acute findings on the included chest radiograph. IMPRESSION: 1. No significant abnormality. Signer Name: Negro Meehan MD Signed: 05/14/2020 1:25 PM Workstation Name: [id number]
[2020-05-14] MEDS ORDERED: ONDANSETRON 4 MG/2 ML INJ IV ONE (13:34)
[2020-05-14] MEDS ORDERED: SODIUM CHLORIDE 0.9% 1000 ML 1,000 ML IV ONE (13:34)
[2020-05-14] MEDS ORDERED: MORPHINE 4 MG/1 ML INJ IV ONE (13:34)
[2020-05-14 14:13] LABS: Hematocrit 37.4 % (35.5-45.6); Hemoglobin 12.8 gm/dl (11.8-15.2); Mean Corpuscular HGB Conc 34 % (32-34); Mean Corpuscular Volume 85 fl (84-94); Platelet Count 301 K/mm3 (140-440); Red Blood Count 4.42 M/mm3 (3.65-5.03); Red Cell Distribution Width 13.2 % (13.2-15.2)
[2020-05-14 14:32] LABS: Alanine Aminotransferase 6 units/L (7-56); Albumin 3.5 g/dL (3.9-5); Blood Urea Nitrogen 8 mg/dL (9-20); Calcium 8.9 mg/dL (8.4-10.2); Hemolysis Index 8
[2020-05-14 14:36] LABS: BUN/Creatinine Ratio 11
[2020-05-14 14:39] LABS: Bilirubin,Direct < 0.2 mg/dL (0-0.2)
[2020-05-14 15:08] LABS: Anisocytosis 1+; Platelet Estimate Consistent w Auto; Total Cells Counted 100
[2020-05-14 15:43] VITALS: BP 113/70
--- NOTE | 2020-05-14 15:48 | Cat Scan Report ---
CT ABDOMEN AND PELVIS WITH CONTRAST INDICATION / CLINICAL INFORMATION: Unspecified abdominal pain. TECHNIQUE: Axial CT images were obtained through the abdomen and pelvis after 100 cc Omnipaque [address] scans at this location are performed using CT dose reduction for ALARA by means of automated exposure control. COMPARISON: CT pelvis with contrast from 11/13/2019. CT abdomen and pelvis with contrast from 11/01/2018. FINDINGS: LOWER CHEST: No significant abnormality. LIVER: No significant abnormality. GALLBLADDER: No significant abnormality. BILE DUCTS: No significant abnormality. PANCREAS: No significant abnormality. SPLEEN: No significant abnormality. ADRENALS: No significant abnormality. RIGHT KIDNEY / URETER: No significant abnormality. LEFT KIDNEY / URETER: No significant abnormality. STOMACH / SMALL BOWEL: No significant abnormality. COLON: No significant abnormality. APPENDIX: No significant abnormality. PERITONEUM: No free fluid. No free air. No fluid collection. LYMPH NODES: No significant adenopathy. AORTA / ARTERIES: No significant abnormality. IVC / VEINS: No significant abnormality. URINARY BLADDER: No significant abnormality. REPRODUCTIVE ORGANS: No significant abnormality. ADDITIONAL FINDINGS: None. SKELETAL SYSTEM: No significant abnormality. IMPRESSION: No significant abnormality of the abdomen or pelvis. Signer Name: Jacobo Rodriguez MD Signed: 05/14/2020 3:43 PM Workstation Name: [id number]
--- NOTE | 2020-05-14 15:49 | Emergency Department Report ---
ED Abdominal Pain HPI - General Chief Complaint: Rectal Pain Stated Complaint: CANT URINATE Time Seen by Provider: 05/14/20 12:17 Source: patient Mode of arrival: Ambulatory Limitations: No Limitations - History of Present Illness Initial Comments: This is a 29-year-old male nontoxic, well nourished in appearance, no acute signs of distress presents to the ED with c/o of constipation and abdominal pain 2 weeks. Patient stated he has rectal polyps and is causing his constipation. Patient denies any vomiting or nausea. Patient describes abdominal pain as cramping and aching with level of 8/10 diffuse. Patient denies chest pain, short of breath, fever, hemoptysis, blood in stool, chills, headache, stiff neck, numbness or tingling. Patient denies any diarrhea. Denies any blood in stool. Patient denies any recent travels. Denies any allergies. MD Complaint: abdominal pain -: week(s) Location: diffuse Radiation: none Migration to: no migration Severity: mild Severity scale (0 -10): 8 Quality: cramping, aching Consistency: constant Improves With: nothing Worsens With: nothing Associated Symptoms: constipation. denies: nausea, vomiting, diarrhea, fever, chills, dysuria, hematemesis, hematochezia, melena, hematuria, anorexia, syncope - Related Data Home Medications Medication Instructions Recorded Confirmed Last Taken Truvada 133 mg-200 mg Tablet 133 mg PO DAILY 11/03/18 11/14/19 11/03/18 11:40 Previous Rx's Medication Instructions Recorded Last Taken Type Docusate Sodium [Colace CAP] 100 mg PO BID #14 capsule 11/03/18 Unknown Rx Amoxicillin/K Clav Tab [Augmentin 1 tab PO Q12HR #28 tab 11/15/19 Unknown Rx 875 mg] Doxycycline Hyclate [Doxycycline 100 mg PO Q12HR #28 tab 11/15/19 Unknown Rx Hyclate TAB] Ibuprofen [Motrin 800 MG tab] 800 mg PO Q8HR PRN #20 tablet 11/15/19 Unknown Rx Allergies Allergy/AdvReac Type Severity Reaction Status Date / Time No Known Allergies Allergy Verified 11/01/18 07:25 ED Review of Systems ROS: Stated complaint: CANT URINATE Other details as noted in HPI Constitutional: denies: chills, fever Eyes: denies: eye pain, eye discharge, vision change ENT: denies: ear pain, throat pain Respiratory: denies: cough, shortness of breath, wheezing Cardiovascular: denies: chest pain, palpitations Endocrine: no symptoms reported Gastrointestinal: abdominal pain, constipation. denies: nausea, vomiting, diarrhea, hematemesis, melena, hematochezia Genitourinary: denies: urgency, dysuria Musculoskeletal: denies: back pain, joint swelling, arthralgia Skin: denies: rash, lesions Neurological: denies: headache, weakness, paresthesias Psychiatric: denies: anxiety, depression Hematological/Lymphatic: denies: easy bleeding, easy bruising ED Past Medical Hx - Past Medical History Previous Medical History?: Yes Hx Congestive Heart Failure: No Hx Diabetes: No Hx Asthma: No Hx COPD: No Hx HIV: Yes Additional medical history: Rectal Polyp - Surgical History Past Surgical History?: Yes Additional Surgical History: Rectal Polyp - Social History Smoking Status: Never Smoker - Medications Home Medications: Home Medications Medication Instructions Recorded Confirmed Last Taken Type Docusate Sodium [Colace CAP] 100 mg PO BID #14 capsule 11/03/18 11/14/19 Unknown Rx Truvada 133 mg-200 mg Tablet 133 mg PO DAILY 11/03/18 11/14/19 11/03/18 11:40 History Amoxicillin/K Clav Tab [Augmentin 1 tab PO Q12HR #28 tab 11/15/19 Unknown Rx 875 mg] Doxycycline Hyclate [Doxycycline 100 mg PO Q12HR #28 tab 11/15/19 Unknown Rx Hyclate TAB] Ibuprofen [Motrin 800 MG tab] 800 mg PO Q8HR PRN #20 tablet 11/15/19 Unknown Rx ED Physical Exam - General Limitations: No Limitations General appearance: alert, in no apparent distress - Head Head exam: Present: atraumatic, normocephalic - Eye Eye exam: Present: normal appearance - Neck Neck exam: Present: normal inspection, full ROM. Absent: tenderness, meningismus, lymphadenopathy - Respiratory Respiratory exam: Absent: respiratory distress - Cardiovascular Cardiovascular Exam: Present: regular rate - GI/Abdominal GI/Abdominal exam: Present: soft, tenderness, normal bowel sounds. Absent: distended, guarding, rebound, rigid, diminished bowel sounds - Rectal Rectal exam: Present: normal inspection, normal rectal tone, other (no perianal abscess or swelling). Absent: decreased rectal tone, heme (+) stool, hemorrhoids, tenderness - Extremities Exam Extremities exam: Present: normal inspection, full ROM - Back Exam Back exam: Present: normal inspection, full ROM. Absent: tenderness, CVA tenderness (R), CVA tenderness (L), muscle spasm, paraspinal tenderness, vertebral tenderness, rash noted - Neurological Exam Neurological exam: Present: alert, oriented X3, normal gait - Psychiatric Psychiatric exam: Present: normal affect, normal mood - Skin Skin exam: Present: warm, dry, intact, normal color. Absent: rash ED Course Vital Signs 05/14/20 05/14/20 05/14/20 10:49 15:42 15:43 Temperature 98.2 F 97.9 F Pulse Rate 88 76 Respiratory 18 14 14 Rate Blood Pressure 114/72 113/70 [Right] O2 Sat by Pulse 98 100 Oximetry - Reevaluation(s) Reevaluation #1: 05/14/20 15:48 Patient is speaking in full sentences with no signs of distress noted. ED Medical Decision Making - Lab Data Result diagrams: 05/14/20 13:56 05/14/20 13:56 Lab Results 05/14/20 05/14/20 Range/Units 13:56 13:56 WBC 5.1 (4.5-11.0) K/mm3 RBC 4.42 (3.65-5.03) M/mm3 Hgb 12.8 (11.8-15.2) gm/dl Hct 37.4 (35.5-45.6) % MCV 85 (84-94) fl MCH 29 (28-32) pg MCHC 34 (32-34) % RDW 13.2 (13.2-15.2) % Plt Count 301 (140-440) K/mm3 Add Manual Diff Complete Total Counted 100 Seg Neutrophils % [employer] Seg Neuts % (Manual) 42.0 (40.0-70.0) % Band Neutrophils % 0 % Lymphocytes % (Manual) 37.0 H (13.4-35.0) % Reactive Lymphs % (Man) 4.0 % Monocytes % (Manual) 11.0 H (0.0-7.3) % Eosinophils % (Manual) 5.0 H (0.0-4.3) % Basophils % (Manual) 1.0 (0.0-1.8) % Metamyelocytes % 0 % Myelocytes % 0 % Promyelocytes % 0 % Blast Cells % 0 % Nucleated RBC % Not Reportable Seg Neutrophils # Man 2.1 (1.8-7.7) K/mm3 Band Neutrophils # 0.0 K/mm3 Lymphocytes # (Manual) 1.9 (1.2-5.4) K/mm3 Abs React Lymphs (Man) 0.2 K/mm3 Monocytes # (Manual) 0.6 (0.0-0.8) K/mm3 Eosinophils # (Manual) 0.3 (0.0-0.4) K/mm3 Basophils # (Manual) 0.1 (0.0-0.1) K/mm3 Metamyelocytes # 0.0 K/mm3 Myelocytes # 0.0 K/mm3 Promyelocytes # 0.0 K/mm3 Blast Cells # 0.0 K/mm3 WBC Morphology Not Reportable Hypersegmented Neuts Not Reportable Hyposegmented Neuts Not Reportable Hypogranular Neuts Not Reportable Smudge Cells Not Reportable Toxic Granulation Not Reportable Toxic Vacuolation Not Reportable Dohle Bodies Not Reportable Pelger-Huet Anomaly Not Reportable Angelina Rods Not Reportable Platelet Estimate Consistent w auto Clumped Platelets Not Reportable Plt Clumps, EDTA Not Reportable Large Platelets Not Reportable Giant Platelets Not Reportable Platelet Satelliting Not Reportable Plt Morphology Comment Not Reportable RBC Morphology Not Reportable Dimorphic RBCs Not Reportable Polychromasia Not Reportable Hypochromasia Not Reportable Poikilocytosis Not Reportable Anisocytosis 1+ Microcytosis Not Reportable Macrocytosis Not Reportable Spherocytes Not Reportable Pappenheimer Bodies Not Reportable Sickle Cells Not Reportable Target Cells Not Reportable Tear Drop Cells Not Reportable Ovalocytes Not Reportable Helmet Cells Not Reportable Pal[place] Bodies Not Reportable [place] Rings Not Reportable Sheldon Cells Not Reportable Bite Cells Not Reportable Crenated Cell Not Reportable Elliptocytes Not Reportable Acanthocytes (Spur) Not Reportable Rouleaux Not Reportable Hemoglobin C Crystals Not Reportable Schistocytes Not Reportable Malaria parasites Not Reportable Blue Bodies Not Reportable Hem Pathologist Commnt No Sodium 140 (137-145) mmol/L Potassium 4.0 (3.6-5.0) mmol/L Chloride 105.1 (98-107) mmol/L Carbon Dioxide 30 (22-30) mmol/L Anion Gap 9 mmol/L BUN 8 L (9-20) mg/dL Creatinine 0.7 L (0.8-1.3) mg/dL Estimated GFR > 60 ml/min BUN/Creatinine Ratio 11 % Glucose 80 (75-100) mg/dL Calcium 8.9 (8.4-10.2) mg/dL Total Bilirubin < 0.20 (0.1-1.2) mg/dL Direct Bilirubin < 0.2 (0-0.2) mg/dL Indirect Bilirubin 0.0 mg/dL AST 10 (5-40) units/L ALT 6 L (7-56) units/L Alkaline Phosphatase 64 (35-129) units/L Total Protein 6.4 (6.3-8.2) g/dL Albumin 3.5 L (3.9-5) g/dL Albumin/Globulin Ratio 1.2 % Lipase 28 (13-60) units/L - Medical Decision Making 29-year-old male that presents with abdominal pain. Patient is stable and was examined by me. CT scan is currently pending. Patient stated he wants to leave. Despite of my medical education and concerns of staying for further evaluation and treatment but patient refused and signed AGAINST MEDICAL ADVICE. Patient was educated on risk factors and complications if not treated but patient still refused. Patient was instructed to follow-up with a primary care doctor in [place] or if symptoms worsen and continue return to emergency room as soon as possible. At time of signing AMA, the patient does not seem toxic or ill in appearance. No acute signs of distress noted. No further questions noted by the patient. Critical care attestation.: If time is entered above; I have spent that time in minutes in the direct care of this critically ill patient, excluding procedure time. ED Disposition Clinical Impression: Abdominal pain Qualifiers: Abdominal location: generalized Qualified Code(s): R10.84 - Generalized abdominal pain Disposition: DC-07 LEFT AGAINST MED ADVICE Is pt being admited?: No Condition: Undetermined Instructions: Abdominal Pain, Adult, [id number] Additional Instructions: Follow-up with a primary care doctor in [place] or if symptoms worsen and continue return to emergency room as soon as possible. Your condition may be serious as instructed and educated today in the ER but you decided to leave AGAINST MEDICAL ADVICE. It is highly recommended to see a provider as soon as possible to rule out serious complications that was described to you during your ED stay. Referrals: PRIMARY CARE, [Primary Care Provider] - HEAVEN HALL MD [Staff Physician] - [place] [facility] [Provider Group] - [facility]
[2020-05-14 16:10] LABS: Bilirubin,Urine NEG (Negative); Blood,Urine NEG (Negative); Color,Urine Colorless (Yellow); Mucus,Urine FEW /HPF; Protein,Urine <15 mg/dL mg/dL (Negative); RBC,Urine < 1.0 /HPF (0.0-6.0); Urobilinogen,Urine < 2.0 mg/dL (<2.0); WBC,Urine < 1.0 /HPF (0.0-6.0)
== END 2020-05-14 15:51 | disposition left against medical advice (07) ==
LOC: ED 09:52
DX: R10.9 Unspecified abdominal pain (principal); Z79.899 Other long term (current) drug therapy; Z98.890 Other specified postprocedural states
CPT/HCPCS: 36415; 74022; 74177; 80048; 80076; 81001; 83690; 85007; 85025; 99284; Q9967